=== PATIENT | male | born 1950 | race Caucasian/White ===

== ENCOUNTER 2016-09-15 16:32 | Inpatient (IN) | payer OTHER, MEDICARE ==
[~2016-09-15 16:32] MED LIST: AMINOPHYLLINE INJ/PF 250 MG/10 ML SDV IV ONE; REGADENOSON INJ 0.4 MG/5 ML DISP.SYRIN IV ONE
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
[2016-09-15] MEDS ORDERED: DIPH/PERTUSS(ACELL)/TETANUS VAC/PF 0.5 ML SYR (>=10YO) IM ONE (17:21)
[2016-09-15] MEDS ORDERED: MECLIZINE HCL 25 MG TABLET PO ONE (17:21)
[2016-09-15 17:41] LABS: HEMOGLOBIN 15.6 g/dL (13.5-17.0); HGB HCT DIFFERENCE 0.8; MEAN CORPUSCULAR HGB CONC 33.9 g/dL (32.0-36.0); MEAN CORPUSCULAR VOLUME 100 fl (80-97); RED BLOOD COUNT 4.59 10^6/uL (4.35-5.55); RED CELL DISTRIBUTION WIDTH 13.6 % (11.5-14.0); WHITE BLOOD COUNT 19.3 10^3/uL (4.0-10.5)
[2016-09-15 18:03] LABS: ALANINE AMINOTRANSFERASE 51 U/L (21-72); ALBUMIN 3.6 g/dL (3.5-5.0); ALKALINE PHOSPHATASE 107 U/L (38-126); ANION GAP 16 (5-19); ASPARTATE AMINO TRANSFERASE 63 U/L (17-59); BILIRUBIN,DIRECT 0.9 mg/dL (0.0-0.4); BLOOD UREA NITROGEN 13 mg/dL (7-20); CALCIUM 9.2 mg/dL (8.4-10.2); CARBON DIOXIDE 16 mmol/L (22-30); CHLORIDE 102 mmol/L (98-107); CREATINE KINASE 54 U/L (55-170); CREATININE RESULT 0.99 mg/dL (0.52-1.25); GLUCOSE 292 mg/dL (75-110); POTASSIUM 4.2 mmol/L (3.6-5.0); SODIUM 134.2 mmol/L (137-145)
[2016-09-15 18:04] LABS: ALCOHOL < 10 mg/dL (NONE DETECTED)
[2016-09-15 18:11] LABS: BASOPHILS % (MANUAL) 0 % (0-2); EOSINOPHILS % (MANUAL) 0 % (0-6); LYMPHOCYTES % (MANUAL) 4 % (13-45); TOTAL CELLS COUNTED 100
[2016-09-15 18:13] LABS: TOXIC GRANULATION SLIGHT
[2016-09-15 18:14] LABS: CREATINE KINASE MB < 0.22 ng/mL (<4.55); OVALOCYTES SLIGHT; POIKILOCYTOSIS SLIGHT
[2016-09-15 18:15] LABS: TROPONIN I 0.052 ng/mL
[2016-09-15] MEDS ORDERED: NORMAL SALINE 1000 ML 1,000 ML IV ONE (18:35)
[2016-09-15] MEDS ORDERED: CEFTRIAXONE 1 GM/D5W RTU 50 ML IV ONE (18:35)
[2016-09-15] MEDS ORDERED: LEVOFLOXACIN 750 MG/D5W RTU 150 ML IV ONE (18:36)
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
--- NOTE | 2016-09-15 19:37 | EKG REPORT ---
SEVERITY:- ABNORMAL ECG - SINUS TACHYCARDIA CLAUDIO, CONSIDER BIATRIAL ABNORMALITIES : Confirmed by: Britni Colunga MD 15-Sep-2016 19:36:29
[2016-09-15 20:16] LABS: ADD ON TESTING BLD IN LAB ACKNOWLEDGE
[2016-09-15 20:37] LABS: MAGNESIUM 2.1 mg/dL (1.6-2.3)
[2016-09-15] MEDS: NORMAL SALINE 1000 ML 1,000 ML IV PRN ×2 (21:01→22:29)
[2016-09-15] MEDS ORDERED: GUAIFENESIN SYRP 200 MG/10 ML UDC PO PRN (21:58)
[2016-09-15] MEDS ORDERED: IPRATROPIUM/ALBUTEROL 0.5-2.5 MG/3 ML AMPUL NEB PRN (21:58)
[2016-09-15] MEDS ORDERED: DEXTROSE 40% GEL 15 GM TUBE PO PRN ×2 (22:00)
[2016-09-15] MEDS ORDERED: DEXTROSE 50%-WATER 25 GM/50 ML DISP.SYRIN IV PRN ×2 (22:00)
[2016-09-15] MEDS ORDERED: GLUCAGON,HUMAN RECOMB 1 MG INJ IM PRN (22:00)
[2016-09-15] MEDS ORDERED: INSULIN LISPRO 100 UNIT/ML 3 ML VIAL SUBCUT PRN (22:00)
[2016-09-15] MEDS ORDERED: ACETAMINOPHEN 325 MG TABLET PO PRN (22:03)
[2016-09-15] MEDS ORDERED: ENALAPRILAT DIHYDRATE INJ/PF 1.25 MG/1 ML SDV IV PRN (22:17)
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
[2016-09-15] MEDS ORDERED: THIAMINE HCL 100 MG TABLET PO ONE (23:00)
[2016-09-15 23:26] LABS: APPEARANCE,URINE CLEAR; BILIRUBIN,URINE NEGATIVE (NEGATIVE); GLUCOSE, URINE 50 mg/dL (NEGATIVE); KETONES,URINE NEGATIVE (NEGATIVE); LEUKOCYTE ESTERASE,URINE NEGATIVE (NEGATIVE); NITRITE,URINE NEGATIVE (NEGATIVE); PROTEIN,URINE NEGATIVE (NEGATIVE); URINE SPECIFIC GRAVITY 1.004; UROBILINOGEN,URINE NEGATIVE mg/dL (<2.0)
[2016-09-15 23:34] LABS: URINE BARBITURATES SCREEN NEGATIVE; URINE METHADONE SCREEN NEGATIVE; URINE OPIATES LOW NEGATIVE; URINE PHENCYCLIDINE SCREEN NEGATIVE
[2016-09-16] MEDS: ACETAMINOPHEN 325 MG TABLET PO PRN ×2 (02:05→13:17)
[2016-09-16] MEDS ORDERED: NORMAL SALINE 1000 ML 500 ML IV ONE (03:47)
[2016-09-16] MEDS: NORMAL SALINE 1000 ML 1,000 ML IV PRN ×2 (04:05→13:30)
[2016-09-16 04:10] LABS: ABSOLUTE LYMPHOCYTES (AUTO) 0.8 10^3/uL (0.5-4.7); ABSOLUTE MONOCYTES (AUTO) 0.7 10^3/uL (0.1-1.4); ABSOLUTE NEUT (AUTO) 13.3 10^3/uL (1.7-8.2); BASOPHILS % (AUTO) 0.2 % (0-2); HEMATOCRIT 38.5 % (37.9-51.0); HGB HCT DIFFERENCE 1.7; LYMPHOCYTES % (AUTO) 5.2 % (13-45); MEAN CORPUSCULAR HGB CONC 34.8 g/dL (32.0-36.0); MEAN CORPUSCULAR VOLUME 98 fl (80-97); RED BLOOD COUNT 3.94 10^6/uL (4.35-5.55); RED CELL DISTRIBUTION WIDTH 13.7 % (11.5-14.0); SEGMENTED NEUTROPHILS % (AUTO) 89.6 % (42-78); WHITE BLOOD COUNT 14.9 10^3/uL (4.0-10.5)
[2016-09-16 04:29] LABS: ALANINE AMINOTRANSFERASE 62 U/L (21-72); ALBUMIN 2.7 g/dL (3.5-5.0); ALKALINE PHOSPHATASE 84 U/L (38-126); ANION GAP 9 (5-19); ASPARTATE AMINO TRANSFERASE 58 U/L (17-59); BILIRUBIN,DIRECT 0.8 mg/dL (0.0-0.4); BILIRUBIN,TOTAL 1.7 mg/dL (0.2-1.3); BLOOD UREA NITROGEN 12 mg/dL (7-20); CALCIUM 8.2 mg/dL (8.4-10.2); CARBON DIOXIDE 18 mmol/L (22-30); CHLORIDE 110 mmol/L (98-107); CREATININE RESULT 0.83 mg/dL (0.52-1.25); GLUCOSE 111 mg/dL (75-110); POTASSIUM 3.8 mmol/L (3.6-5.0); SODIUM 136.6 mmol/L (137-145); TOTAL PROTEIN 5.5 g/dL (6.3-8.2)
[2016-09-16 04:47] LABS: HEMOGLOBIN 13.4 g/dL (13.5-17.0)
--- NOTE | 2016-09-16 08:30 | EKG REPORT ---
SEVERITY:- OTHERWISE NORMAL ECG - SINUS TACHYCARDIA : Confirmed by: Britni Colunga MD 16-Sep-2016 08:30:12
[2016-09-16] MEDS: ENOXAPARIN SODIUM INJ 40 MG/0.4 ML DISP.SYRIN SUBCUT SCH (09:14)
[2016-09-16] MEDS: FOLIC ACID 1 MG TABLET PO SCH (09:34)
[2016-09-16] MEDS: BACITRACIN ZINC OINTMENT 15 GM TP SCH (09:34)
[2016-09-16] MEDS: MULTIVITAMIN TABLET PO SCH (09:34)
[2016-09-16] MEDS: THIAMINE HCL 100 MG TABLET PO SCH (09:34)
[2016-09-16] MEDS ORDERED: AZITHROMYCIN 500 MG in DEXTROSE 5%-WATER 250 ML IV SCH (10:00)
[2016-09-16] MEDS ORDERED: GUAIFENESIN 600 MG TABLET.SA PO ONE (15:23)
[2016-09-16] MEDS ORDERED: VANCOMYCIN HCL 0 MG in DEXTROSE 5%-WATER 250 ML IV NR (15:30)
--- NOTE | 2016-09-16 15:41 | PDOC PROGRESS REPORT ---
Subjective Progress Note for:: 09/16/16 Subjective:: The patient was seen earlier today on rounds. The patient admits to shortness of breath overall has improved. The patient has been producing a scant amount of sputum. The patient denies any nausea, vomiting, diarrhea, dizziness, chest pain, heart palpitations, fevers, or chills. The patient has responded to fever. Blood pressures have been in a good range. When prompted the patient voices no other concerns at this time. Review of systems: The rest of the review of systems is negative. Physical Exam Vital Signs: Temp Pulse Resp BP Pulse Ox 101.7 F H 104 H 20 126/60 H 95 09/16/16 11:08 09/16/16 14:13 09/16/16 11:08 09/16/16 11:08 09/16/16 11:08 Intake & Output 09/14/16 09/15/16 09/16/16 23:59 23:59 23:59 Intake Total 1950 Output Total 1250 Balance 700 Weight 90.1 kg General appearance: PRESENT: no acute distress, cooperative, well-developed, well-nourished Head exam: PRESENT: atraumatic, normocephalic Eye exam: PRESENT: conjunctiva pink, EOMI, PERRLA. ABSENT: scleral icterus Ear exam: PRESENT: normal external ear exam Mouth exam: PRESENT: moist, tongue midline Neck exam: ABSENT: carotid bruit, JVD, lymphadenopathy, thyromegaly Respiratory exam: PRESENT: decreased breath sounds, symmetrical, unlabored. ABSENT: rales, rhonchi, tachypnea, wheezes Cardiovascular exam: PRESENT: RRR. ABSENT: diastolic murmur, rubs, systolic murmur Pulses: PRESENT: normal dorsalis pedis pul Vascular exam: PRESENT: normal capillary refill GI/Abdominal exam: PRESENT: normal bowel sounds, soft. ABSENT: distended, guarding, mass, organolmegaly, rebound, tenderness Rectal exam: PRESENT: deferred Extremities exam: PRESENT: full ROM. ABSENT: calf tenderness, clubbing, pedal edema Neurological exam: PRESENT: alert, awake, oriented to person, oriented to place , oriented to time, oriented to situation, CN II-XII grossly intact. ABSENT: motor sensory deficit Psychiatric exam: PRESENT: appropriate affect, normal mood. ABSENT: homicidal ideation, suicidal ideation Skin exam: PRESENT: dry, intact, warm. ABSENT: cyanosis, rash Results Laboratory Results: 09/16/16 03:39 09/16/16 03:39 09/15/16 09/16/16 09/16/16 23:03 03:39 03:39 WBC 14.9 H RBC 3.94 L Hgb 13.4 L D Hct 38.5 MCV 98 H MCH 34.0 H MCHC 34.8 RDW 13.7 Plt Count 101 L Seg Neutrophils % 89.6 H Lymphocytes % 5.2 L Monocytes % 5.0 Eosinophils % 0.0 Basophils % 0.2 Absolute Neutrophils 13.3 H Absolute Lymphocytes 0.8 Absolute Monocytes 0.7 Absolute Eosinophils 0.0 Absolute Basophils 0.0 Sodium 136.6 L Potassium 3.8 Chloride 110 H Carbon Dioxide 18 L Anion Gap 9 BUN 12 Creatinine 0.83 Est GFR ( Amer) > 60 Est GFR (Non-Af Amer) > 60 Glucose 111 H Calcium 8.2 L Total Bilirubin 1.7 H AST 58 ALT 62 Alkaline Phosphatase 84 Total Protein 5.5 L Albumin 2.7 L Urine Color YELLOW Urine Appearance CLEAR Urine pH 6.0 Ur Specific [place] 1.004 Urine Protein NEGATIVE Urine Glucose (UA) 50 H Urine Ketones NEGATIVE Urine Blood NEGATIVE Urine Nitrite NEGATIVE Ur Leukocyte Esterase NEGATIVE Urine WBC (Auto) 1 Urine RBC (Auto) 1 09/15/16 23:12 Tracheal Aspirate Gram Stain - Final 09/15/16 23:12 Tracheal Aspirate Sputum Culture - Final 09/15/16 09/16/16 09/16/16 23:30 03:39 07:31 Troponin I 0.172 0.186 0.150 Impressions: Chest X-Ray 09/15/16 17:22 IMPRESSION: NO SIGNIFICANT RADIOGRAPHIC FINDING IN THE CHEST. Assessment & Plan - Diagnosis (1) Pneumonia Qualifiers: Pneumonia type: due to unspecified organism Laterality: unspecified laterality Lung location: unspecified part of lung Qualified Code(s) : J18.9 - Pneumonia, unspecified organism Is this a current diagnosis for this admission?: YesPlan: Appears to be a clinical pneumonia as there is no evidence on x-ray. Given the patient's symptoms will add Mucinex as well as incentive spirometry and flutter valve. (2) Bacteremia Is this a current diagnosis for this admission?: YesPlan: Currently awaiting second set of cultures will repeat blood cultures and follow. (3) Abrasion of left leg Qualifiers: Encounter type: initial encounter Qualified Code(s): S80.812A - Abrasion, left lower leg, initial encounter Is this a current diagnosis for this admission?: YesPlan: Appears self-limiting (4) Sepsis Qualifiers: Sepsis type: sepsis due to unspecified organism Qualified Code(s): A41.9 - Sepsis, unspecified organism Is this a current diagnosis for this admission?: YesPlan: Is likely secondary to #1 and #2. Will repeat blood cultures and increase coverage given the patient's persistent fever. (5) Elevated troponin Is this a current diagnosis for this admission?: YesPlan: Do appreciate cardiology's input with this most likely this is demand ischemia (6) Hyperglycemia Is this a current diagnosis for this admission?: YesPlan: Appears to be a stress response as the patient's A1c is an excellent range. (7) Orthostatic hypotension Is this a current diagnosis for this admission?: YesPlan: Improved with hydration (8) Syncope Qualifiers: Syncope type: unspecified Qualified Code(s): R55 - Syncope and collapse Is this a current diagnosis for this admission?: YesPlan: Most likely secondary to the above the patient had no further episodes. (9) Thrombocytopenia Is this a current diagnosis for this admission?: YesPlan: Secondary to cirrhosis relatively stable (10) Anxiety Is this a current diagnosis for this admission?: Yes (11) Cirrhosis of liver Qualifiers: Hepatic cirrhosis type: unspecified hepatic cirrhosis Ascites presence : without ascites Qualified Code(s): K74.60 - Unspecified cirrhosis of liver Is this a current diagnosis for this admission?: Yes (12) HTN (hypertension) Qualifiers: Hypertension type: essential hypertension Qualified Code(s): I10 - Essential (primary) hypertension Is this a current diagnosis for this admission?: YesPlan: Howard in a good range will continue to monitor - Time Time Spent with patient: 35 or more minutes Medications reviewed and adjusted accordingly: Yes Anticipated discharge: Home Within: within 48 hours, within 72 hours Disposition: The patient is a full code. Pending patient's symptomatology and diagnostic findings will reevaluate in the a.m.
[2016-09-16] MEDS: VANCOMYCIN HCL 1,250 MG in DEXTROSE 5%-WATER 250 ML IV SCH (17:29)
[2016-09-16] MEDS: PIPERACILLIN SODIUM/TAZOBACTAM 4.5 GM in NORMAL SALINE 100 ML IV SCH ×2 (17:30→23:35)
[2016-09-16] MEDS ORDERED: CEFTRIAXONE 1 GM/D5W RTU 1 GM/50 ML RTUPB IV SCH (18:00)
--- NOTE | 2016-09-16 18:56 | XCELERA REPORT ---
[address] [address] Transthoracic Echocardiogram Report Name: JAYA KOCH Age: 66 yrs Gender: Male : 1950 Patient Status: Inpatient Patient Location: [id number] Study Date: 09/16/2016 10:18 AM Height: 71 in Weight: 198 lb BSA: 2.1 m2 Procedure: A complete two-dimensional transthoracic echocardiogram was performed (2D, M-mode, spectral and color flow Doppler). The study was technically difficult with many images being suboptimal in quality. Reason For Study: syncope Ordering Physician: MARY GALAVIZ Performed By: Noemí Flores Interpretation Summary The left ventricular ejection fraction is normal. There is borderline concentric left ventricular hypertrophy. Doppler measurements suggest pseudonormalized left ventricular relaxation, which is associated with grade II/IV or mild to moderate diastolic dysfunction The left ventricle is grossly normal size. No regional wall motion abnormalities noted. The right ventricular systolic function is normal. The right atrium is normal in size The left atrium is borderline dilated. There is a trace amount of mitral regurgitation There is no mitral valve stenosis. No aortic regurgitation is present. There is no aortic valve stenosis There is a trace or physiologic amount of tricuspid regurgitation Tricuspid regurgitation jet envelope not well defined to measure RV systolic pressure accurately. The aortic root is not well visualized but is probably normal size. The inferior vena cava was not well visualized There is no pericardial effusion. MMode/2D Measurements \T\ Calculations RVDd: 3.2 cm LVIDd: 5.1 cm FS: 38.0 % Ao root diam: 3.3 cm IVSd: 0.96 cm LVIDs: 3.1 cm EDV(Teich): 121.0 ml LVPWd: 1.00 cm ESV(Teich): 38.8 ml Ao root area: 8.3 cm2 EF(Teich): 67.9 % LA dimension: 3.7 cm Doppler Measurements \T\ Calculations MV E max alisson: MV P1/2t max alisson: Ao V2 max: LV V1 max P.9 cm/sec 83.4 cm/sec 142.4 cm/sec 4.9 mmHg MV A max alisson: MV P1/2t: 63.1 msec Ao max PG: LV V1 max: 89.3 cm/sec 8.1 mmHg 110.6 cm/sec MV E/A: 0.92 MVA(P1/2t): 3.5 cm2 MV dec slope: 387.3 cm/sec2 MV dec time: 0.20 sec PA V2 max: 102.2 cm/sec PA max P.2 mmHg Left Ventricle The left ventricle is grossly normal size. There is borderline concentric left ventricular hypertrophy. The left ventricular ejection fraction is normal. Doppler measurements suggest pseudonormalized left ventricular relaxation, which is associated with grade II/IV or mild to moderate diastolic dysfunction. No regional wall motion abnormalities noted. Right Ventricle The right ventricle is grossly normal size. There is normal right ventricular wall thickness. The right ventricular systolic function is normal. Atria The right atrium is normal in size. The left atrium is borderline dilated. Interarterial septum not well visualized and not well dopplered. Cannot comment on ASD/PFO presence. Mitral Valve The mitral valve is grossly normal. There is no mitral valve stenosis. There is a trace amount of mitral regurgitation. Aortic Valve The aortic valve is grossly normal. There is no aortic valve stenosis. No aortic regurgitation is present. Tricuspid Valve The tricuspid valve is not well visualized secondary to technical limitations. There is no tricuspid stenosis. There is a trace or physiologic amount of tricuspid regurgitation. Tricuspid regurgitation jet envelope not well defined to measure RV systolic pressure accurately. Pulmonic Valve The pulmonic valve is not well visualized. Great Vessels The aortic root is not well visualized but is probably normal size. The inferior vena cava was not well visualized. Effusions There is no pericardial effusion. : MARY GALAVIZ > Mary Galaviz
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
[2016-09-16 20:10] LABS: CHOLESTEROL 91.06 mg/dL (0-200); Direct HDL 14 mg/dL (>40); TRIGLYCERIDES 161 mg/dL (<150)
[2016-09-16 20:22] LABS: DIRECT LDL < 30 mg/dL (<100); VLDL CHOLESTEROL 32.2 mg/dL (10-31)
[2016-09-16] MEDS: GUAIFENESIN 600 MG TABLET.SA PO SCH (21:19)
[2016-09-17] MEDS: VANCOMYCIN HCL 1,250 MG in DEXTROSE 5%-WATER 250 ML IV SCH ×2 (05:44→18:58)
[2016-09-17] MEDS: PIPERACILLIN SODIUM/TAZOBACTAM 4.5 GM in NORMAL SALINE 100 ML IV SCH ×3 (05:45→18:57)
[2016-09-17 08:41] LABS: HEMATOCRIT 37.7 % (37.9-51.0); HGB HCT DIFFERENCE 1.3; MEAN CORPUSCULAR HEMOGLOBIN 34.2 pg (27.0-33.4); MEAN CORPUSCULAR HGB CONC 34.5 g/dL (32.0-36.0); MEAN CORPUSCULAR VOLUME 99 fl (80-97); RED BLOOD COUNT 3.81 10^6/uL (4.35-5.55); WHITE BLOOD COUNT 10.3 10^3/uL (4.0-10.5)
[2016-09-17 09:02] LABS: ANION GAP 10 (5-19); BLOOD UREA NITROGEN 11 mg/dL (7-20); CALCIUM 8.2 mg/dL (8.4-10.2); CARBON DIOXIDE 18 mmol/L (22-30); CHLORIDE 108 mmol/L (98-107); CREATININE RESULT 0.69 mg/dL (0.52-1.25); GLUCOSE 123 mg/dL (75-110); MAGNESIUM 1.7 mg/dL (1.6-2.3); POTASSIUM 3.3 mmol/L (3.6-5.0); SODIUM 136.2 mmol/L (137-145)
[2016-09-17] MEDS: ENOXAPARIN SODIUM INJ 40 MG/0.4 ML DISP.SYRIN SUBCUT SCH (09:53)
[2016-09-17] MEDS: THIAMINE HCL 100 MG TABLET PO SCH (10:35)
[2016-09-17] MEDS: GUAIFENESIN 600 MG TABLET.SA PO SCH ×2 (10:35→21:49)
[2016-09-17] MEDS: POTASSIUM CHLORIDE 10 MEQ TABLET.SA PO SCH ×2 (10:36→15:07)
[2016-09-17] MEDS: BACITRACIN ZINC OINTMENT 15 GM TP SCH (10:36)
[2016-09-17] MEDS: MULTIVITAMIN TABLET PO SCH (10:36)
[2016-09-17] MEDS: FOLIC ACID 1 MG TABLET PO SCH (10:36)
--- NOTE | 2016-09-17 11:33 | PDOC PROGRESS REPORT ---
Subjective Progress Note for:: 09/17/16 Subjective:: Patient seems to be doing better with gradual improvement. Pt is denying any chest arm or neck discomfort. Patient denying any PND, orthopnea. Patient denied any sustained palpitations, dizziness, syncope, near syncope. Patient denying any fever chills. Patient denying any other significant discomfort. Patient is maintaining sinus rhythm. Today I discussed scheduling nuclear stress test with the patient. He is agreeable. 2-D echo results were reviewed with the patient. Review of systems: Rest review of systems negative. Medications: Medications have been reviewed. Physical Exam Vital Signs: Temp Pulse Resp BP Pulse Ox 100.8 F H 102 H 20 128/60 H 95 09/17/16 07:21 09/17/16 07:21 09/17/16 07:21 09/17/16 07:21 09/17/16 07:21 Intake & Output 09/16/16 09/17/16 09/18/16 06:59 06:59 06:59 Intake Total 1492 2808 Output Total 475 1850 Balance 1017 958 Weight 90.1 kg 92.9 kg Exam: GENERAL: well-nourished and in no acute distress. Alert and oriented x3 HEAD: Atraumatic, normocephalic. EYES: Pupils equal round and reactive to light, extraocular movements intact, sclera anicteric, conjunctiva are normal. ENT: TMs normal, nares patent, oropharynx clear without exudates. Moist mucous membranes. No oral ulcerations or bleeding gums noted NECK: supple without lymphadenopathy. Trachea is central. No cervical or axillary lymphadenopathy noted. Carotids are 2+, JVD WNL LUNGS: Respiration seems nonlabored, no significant accessory muscle action noted. Breath sounds clear to auscultation bilaterally and equal noted. No wheezes rales or rhonchi noted. No significant dullness noted on percussion. CHEST: Palpation of the chest wall shows no significant chest wall tenderness. No other significant abnormalities noted. HEART: [place] ASSESSMENT MANAGER, No PSH, 1/6 DIMA aortic area, 1/6 swanson systolic murmur mitral area, no rubs, no gallops. ABDOMEN: Soft, no significant tenderness appreciated, normoactive bowel sounds. No guarding, no rebound. No rigidity noted . No masses appreciated. EXTREMITIES: Pedal pulses are 1-2+, no calf tenderness noted. No clubbing or cyanosis.trace to 1+ pedal edema noted NEUROLOGICAL: Focused neurological exam showed no significant neurologic deficit. Normal speech, no focal weakness appreciated. PSYCH: Normal mood, normal affect. Judgment and insight within normal limits. SKIN: No significant ecchymosis, rash, ulcerations or signs of pruritus noted. MUSCULOSKELETAL EXAM: No significant joint swelling noted. Results Laboratory Results: 09/17/16 08:14 09/17/16 08:14 09/16/16 09/17/16 09/17/16 03:39 08:14 08:14 WBC 10.3 RBC 3.81 L Hgb 13.0 L Hct 37.7 L MCV 99 H MCH 34.2 H MCHC 34.5 RDW 14.0 Plt Count 101 L Sodium 136.2 L Potassium 3.3 L Chloride 108 H Carbon Dioxide 18 L Anion Gap 10 BUN 11 Creatinine 0.69 Est GFR ( Amer) > 60 Est GFR (Non-Af Amer) > 60 Glucose 123 H Calcium 8.2 L Magnesium 1.7 Triglycerides 161 H Cholesterol 91.06 LDL Cholesterol Direct < 30 VLDL Cholesterol 32.2 H HDL Cholesterol 14 L 09/15/16 23:12 Tracheal Aspirate Gram Stain - Final 09/15/16 23:12 Tracheal Aspirate Sputum Culture - Final 09/15/16 09/16/16 09/16/16 23:30 03:39 07:31 Troponin I 0.172 0.186 0.150 Impressions: Chest X-Ray 09/15/16 17:22 IMPRESSION: NO SIGNIFICANT RADIOGRAPHIC FINDING IN THE CHEST. Knee X-Ray 09/17/16 00:00 IMPRESSION: Advanced osteoarthritic changes. No acute findings. Assessment & Plan - Diagnosis (1) Elevated troponin Is this a current diagnosis for this admission?: Yes (2) Syncope Qualifiers: Syncope type: unspecified Qualified Code(s): R55 - Syncope and collapse Is this a current diagnosis for this admission?: Yes (3) HTN (hypertension) Qualifiers: Hypertension type: essential hypertension Qualified Code(s): I10 - Essential (primary) hypertension Is this a current diagnosis for this admission?: Yes (4) Sepsis Qualifiers: Sepsis type: sepsis due to unspecified organism Qualified Code(s): A41.9 - Sepsis, unspecified organism Is this a current diagnosis for this admission?: Yes - Notes Notes: Elevated troponin I in the non-STEMI range: Exact etiology not clear but probably related to sepsis. Discussed possibility of underlying CAD. Patient is now agreeable to pursue a nuclear stress test. This will be scheduled. Syncope: So far no cardiac dysrhythmia noted. Patient may benefit from event monitoring as an outpatient. 2-D echo shows no significant structural cardiac abnormalities. Hypertension: Currently under reasonable control. Sepsis: Seems resolved clinically but continue course of antibiotic as needed. - Time Time with patient: Greater than 35 minutes - CODE STATUS was discussed, patient remains full code. Surrogate decision-maker unchanged. Multiple medical problems were addressed.More than 50% of the time spent coordinating care, discussing management plans with involved caregivers. Management plans discussed with involved personnels. Medical decision making was of moderate to high complexity, patient's has multiple severe comorbidities.
[2016-09-17] MEDS ORDERED: METOPROLOL SUCCINATE 25 MG TAB.SR.24H PO ONE (12:15)
--- NOTE | 2016-09-17 13:43 | PDOC PROGRESS REPORT ---
Subjective Progress Note for:: 09/17/16 Subjective:: The patient was seen earlier today on rounds. The patient admits to shortness of breath overall has improved. The patient has been producing a scant amount of sputum. The patient does complain of left knee pain. The patient relates this to his fall. The patient denies any nausea, vomiting, diarrhea, dizziness , chest pain, heart palpitations, fevers, or chills. The patient still has a low-grade fever. Blood pressures have been in a good range. When prompted the patient voices no other concerns at this time. Review of systems: The rest of the review of systems is negative. Physical Exam Vital Signs: Temp Pulse Resp BP Pulse Ox 99.6 F 90 20 105/64 94 09/17/16 11:47 09/17/16 11:47 09/17/16 11:47 09/17/16 11:47 09/17/16 11:47 Intake & Output 09/15/16 09/16/16 09/17/16 23:59 23:59 23:59 Intake Total 3500 800 Output Total 1250 1075 Balance 2250 -275 Weight 90.1 kg 92.9 kg General appearance: PRESENT: no acute distress, cooperative, well-developed, well-nourished Head exam: PRESENT: atraumatic, normocephalic Eye exam: PRESENT: conjunctiva pink, EOMI, PERRLA. ABSENT: scleral icterus Ear exam: PRESENT: normal external ear exam Mouth exam: PRESENT: moist, tongue midline Neck exam: ABSENT: carotid bruit, JVD, lymphadenopathy, thyromegaly Respiratory exam: PRESENT: decreased breath sounds, symmetrical, unlabored. ABSENT: rales, rhonchi, tachypnea, wheezes Cardiovascular exam: PRESENT: RRR. ABSENT: diastolic murmur, rubs, systolic murmur Pulses: PRESENT: normal dorsalis pedis pul Vascular exam: PRESENT: normal capillary refill GI/Abdominal exam: PRESENT: normal bowel sounds, soft. ABSENT: distended, guarding, mass, organolmegaly, rebound, tenderness Rectal exam: PRESENT: deferred Extremities exam: PRESENT: full ROM. Left knee slightly erythematous. ABSENT: calf tenderness, clubbing, pedal edema Neurological exam: PRESENT: alert, awake, oriented to person, oriented to place , oriented to time, oriented to situation, CN II-XII grossly intact. ABSENT: motor sensory deficit Psychiatric exam: PRESENT: appropriate affect, normal mood. ABSENT: homicidal ideation, suicidal ideation Skin exam: PRESENT: dry, intact, warm. ABSENT: cyanosis, rash Results Laboratory Results: 09/17/16 08:14 09/17/16 08:14 09/16/16 09/17/16 09/17/16 03:39 08:14 08:14 WBC 10.3 RBC 3.81 L Hgb 13.0 L Hct 37.7 L MCV 99 H MCH 34.2 H MCHC 34.5 RDW 14.0 Plt Count 101 L Sodium 136.2 L Potassium 3.3 L Chloride 108 H Carbon Dioxide 18 L Anion Gap 10 BUN 11 Creatinine 0.69 Est GFR ( Amer) > 60 Est GFR (Non-Af Amer) > 60 Glucose 123 H Calcium 8.2 L Magnesium 1.7 Triglycerides 161 H Cholesterol 91.06 LDL Cholesterol Direct < 30 VLDL Cholesterol 32.2 H HDL Cholesterol 14 L 09/15/16 23:12 Tracheal Aspirate Gram Stain - Final 09/15/16 23:12 Tracheal Aspirate Sputum Culture - Final 09/15/16 09/16/16 09/16/16 23:30 03:39 07:31 Troponin I 0.172 0.186 0.150 Impressions: Chest X-Ray 09/15/16 17:22 IMPRESSION: NO SIGNIFICANT RADIOGRAPHIC FINDING IN THE CHEST. Knee X-Ray 09/17/16 00:00 IMPRESSION: Advanced osteoarthritic changes. No acute findings. Assessment & Plan - Diagnosis (1) Pneumonia Qualifiers: Pneumonia type: due to unspecified organism Laterality: unspecified laterality Lung location: unspecified part of lung Qualified Code(s) : J18.9 - Pneumonia, unspecified organism Is this a current diagnosis for this admission?: YesPlan: Appears to be a clinical pneumonia as there is no evidence on x-ray. Will continue Mucinex as well as incentive spirometry and flutter valve. (2) Bacteremia Is this a current diagnosis for this admission?: YesPlan: Currently awaiting second set of cultures. (3) Abrasion of left leg Qualifiers: Encounter type: initial encounter Qualified Code(s): S80.812A - Abrasion, left lower leg, initial encounter Is this a current diagnosis for this admission?: YesPlan: The patient does not have any obvious area of abscess or active infection. Patient does have some erythema of the left knee will obtain imaging short no evidence of effusion or septic joint. (4) Sepsis Qualifiers: Sepsis type: sepsis due to unspecified organism Qualified Code(s): A41.9 - Sepsis, unspecified organism Is this a current diagnosis for this admission?: YesPlan: Is likely secondary to #1 and #2. Will continue increased coverage given the patient's persistent fever. (5) Elevated troponin Is this a current diagnosis for this admission?: YesPlan: Do appreciate cardiology's input with this most likely this is demand ischemia. To appreciate cardiology's input. (6) Hyperglycemia Is this a current diagnosis for this admission?: YesPlan: Appears to be a stress response as the patient's A1c is an excellent range. (7) Orthostatic hypotension Is this a current diagnosis for this admission?: YesPlan: Improved with hydration (8) Syncope Qualifiers: Syncope type: unspecified Qualified Code(s): R55 - Syncope and collapse Is this a current diagnosis for this admission?: YesPlan: Most likely secondary to the above the patient had no further episodes. (9) Thrombocytopenia Is this a current diagnosis for this admission?: YesPlan: Secondary to cirrhosis relatively stable (10) Anxiety Is this a current diagnosis for this admission?: YesPlan: The patient's son has reported a history of PTSD as well as anxiety. With formal discussion with the patient the patient states that he has not been treated for either of these diagnoses and is not sure if he is ever been formally diagnosed. The patient did seem agitated when asked his son to participate in his care. Will consult psych for recommendations. The patient denies any intent or suicidal homicidal ideation. (11) Cirrhosis of liver Qualifiers: Hepatic cirrhosis type: unspecified hepatic cirrhosis Ascites presence : without ascites Qualified Code(s): K74.60 - Unspecified cirrhosis of liver Is this a current diagnosis for this admission?: Yes (12) HTN (hypertension) Qualifiers: Hypertension type: essential hypertension Qualified Code(s): I10 - Essential (primary) hypertension Is this a current diagnosis for this admission?: YesPlan: Howard in a good range will continue to monitor - Time Time Spent with patient: 25-34 minutes Medications reviewed and adjusted accordingly: Yes Anticipated discharge: Home Within: within 24 hours, within 48 hours Disposition: The patient is a full code. Pending patient's symptomatology and diagnostic findings will reevaluate in the a.m.
[2016-09-18] MEDS: PIPERACILLIN SODIUM/TAZOBACTAM 4.5 GM in NORMAL SALINE 100 ML IV SCH ×4 (00:36→17:07)
[2016-09-18 05:30] LABS: HEMATOCRIT 39.3 % (37.9-51.0); HEMOGLOBIN 13.5 g/dL (13.5-17.0); HGB HCT DIFFERENCE 1.2; MEAN CORPUSCULAR HEMOGLOBIN 33.8 pg (27.0-33.4); MEAN CORPUSCULAR HGB CONC 34.4 g/dL (32.0-36.0); MEAN CORPUSCULAR VOLUME 98 fl (80-97); RED BLOOD COUNT 3.99 10^6/uL (4.35-5.55); RED CELL DISTRIBUTION WIDTH 13.9 % (11.5-14.0); WHITE BLOOD COUNT 11.7 10^3/uL (4.0-10.5)
[2016-09-18 05:49] LABS: ANION GAP 12 (5-19); BLOOD UREA NITROGEN 15 mg/dL (7-20); CALCIUM 9.1 mg/dL (8.4-10.2); CARBON DIOXIDE 17 mmol/L (22-30); CHLORIDE 110 mmol/L (98-107); CREATININE RESULT 0.74 mg/dL (0.52-1.25); GLUCOSE 102 mg/dL (75-110); MAGNESIUM 1.9 mg/dL (1.6-2.3); SODIUM 139.4 mmol/L (137-145)
[2016-09-18 06:06] LABS: POTASSIUM 4.5 mmol/L (3.6-5.0)
[2016-09-18] MEDS: ENOXAPARIN SODIUM INJ 40 MG/0.4 ML DISP.SYRIN SUBCUT SCH (10:09)
[2016-09-18] MEDS: ASPIRIN 81 MG TABLET, ENT COATED PO SCH (10:15)
[2016-09-18] MEDS: FOLIC ACID 1 MG TABLET PO SCH (10:15)
[2016-09-18] MEDS: GUAIFENESIN 600 MG TABLET.SA PO SCH ×2 (10:15→21:10)
[2016-09-18] MEDS: VANCOMYCIN HCL 1,250 MG in DEXTROSE 5%-WATER 250 ML IV SCH ×2 (10:16→17:39)
[2016-09-18] MEDS: THIAMINE HCL 100 MG TABLET PO SCH (10:16)
[2016-09-18] MEDS: METOPROLOL SUCCINATE 25 MG TAB.SR.24H PO SCH (10:16)
[2016-09-18] MEDS: MULTIVITAMIN TABLET PO SCH (10:16)
[2016-09-18] MEDS: BACITRACIN ZINC OINTMENT 15 GM TP SCH (10:16)
--- NOTE | 2016-09-18 15:03 | PDOC PROGRESS REPORT ---
Subjective Progress Note for:: 09/18/16 Subjective:: The patient was seen earlier today on rounds. The patient admits to shortness of breath overall has improved. The patient has been producing a scant amount of sputum. The patient states that knee pain has improved. The patient denies any nausea, vomiting, diarrhea, dizziness, chest pain, heart palpitations, fevers, or chills. Patient has been afebrile overnight Blood pressures have been in a good range. When prompted the patient voices no other concerns at this time. Review of systems: The rest of the review of systems is negative. Physical Exam Vital Signs: Temp Pulse Resp BP Pulse Ox 98.7 F 71 18 113/55 L 94 09/18/16 11:14 09/18/16 11:14 09/18/16 11:14 09/18/16 11:14 09/18/16 11:14 Intake & Output 09/16/16 09/17/16 09/18/16 23:59 23:59 23:59 Intake Total 3500 2391 1328 Output Total 1250 1375 1200 Balance 2250 1016 128 Weight 90.1 kg 92.9 kg 96.5 kg General appearance: PRESENT: no acute distress, cooperative, well-developed, well-nourished Head exam: PRESENT: atraumatic, normocephalic Eye exam: PRESENT: conjunctiva pink, EOMI, PERRLA. ABSENT: scleral icterus Ear exam: PRESENT: normal external ear exam Mouth exam: PRESENT: moist, tongue midline Neck exam: ABSENT: carotid bruit, JVD, lymphadenopathy, thyromegaly Respiratory exam: PRESENT: decreased breath sounds, symmetrical, unlabored. ABSENT: rales, rhonchi, tachypnea, wheezes Cardiovascular exam: PRESENT: RRR. ABSENT: diastolic murmur, rubs, systolic murmur Pulses: PRESENT: normal dorsalis pedis pul Vascular exam: PRESENT: normal capillary refill GI/Abdominal exam: PRESENT: normal bowel sounds, soft. ABSENT: distended, guarding, mass, organolmegaly, rebound, tenderness Rectal exam: PRESENT: deferred Extremities exam: PRESENT: full ROM. Left knee slightly erythematous. ABSENT: calf tenderness, clubbing, pedal edema Neurological exam: PRESENT: alert, awake, oriented to person, oriented to place , oriented to time, oriented to situation, CN II-XII grossly intact. ABSENT: motor sensory deficit Psychiatric exam: PRESENT: appropriate affect, normal mood. ABSENT: homicidal ideation, suicidal ideation Skin exam: PRESENT: dry, intact, warm. ABSENT: cyanosis, rash Results Laboratory Results: 09/18/16 04:47 09/18/16 04:47 09/18/16 09/18/16 04:47 04:47 WBC 11.7 H RBC 3.99 L Hgb 13.5 Hct 39.3 MCV 98 H MCH 33.8 H MCHC 34.4 RDW 13.9 Plt Count 116 L Sodium 139.4 Potassium 4.5 D Chloride 110 H Carbon Dioxide 17 L Anion Gap 12 BUN 15 Creatinine 0.74 Est GFR ( Amer) > 60 Est GFR (Non-Af Amer) > 60 Glucose 102 Calcium 9.1 Magnesium 1.9 09/15/16 09/16/16 09/16/16 23:30 03:39 07:31 Troponin I 0.172 0.186 0.150 Impressions: Chest X-Ray 09/15/16 17:22 IMPRESSION: NO SIGNIFICANT RADIOGRAPHIC FINDING IN THE CHEST. Knee X-Ray 09/17/16 00:00 IMPRESSION: Advanced osteoarthritic changes. No acute findings. Assessment & Plan - Diagnosis (1) Pneumonia Qualifiers: Pneumonia type: due to unspecified organism Laterality: unspecified laterality Lung location: unspecified part of lung Qualified Code(s) : J18.9 - Pneumonia, unspecified organism Is this a current diagnosis for this admission?: YesPlan: Appears to be a clinical pneumonia as there is no evidence on x-ray. Will continue Mucinex as well as incentive spirometry and flutter valve. (2) Bacteremia Is this a current diagnosis for this admission?: YesPlan: Second set of blood cultures unremarkable. Will continue current antibiotic coverage 24 more hours. (3) Abrasion of left leg Qualifiers: Encounter type: initial encounter Qualified Code(s): S80.812A - Abrasion, left lower leg, initial encounter Is this a current diagnosis for this admission?: YesPlan: The patient does not have any obvious area of abscess or active infection. (4) Sepsis Qualifiers: Sepsis type: sepsis due to unspecified organism Qualified Code(s): A41.9 - Sepsis, unspecified organism Is this a current diagnosis for this admission?: YesPlan: Is likely secondary to #1 and #2. Will continue increased coverage given the patient's persistent fever. (5) Elevated troponin Is this a current diagnosis for this admission?: YesPlan: Do appreciate cardiology's input with this most likely this is demand ischemia. To appreciate cardiology's input. (6) Hyperglycemia Is this a current diagnosis for this admission?: YesPlan: Appears to be a stress response as the patient's A1c is an excellent range. (7) Orthostatic hypotension Is this a current diagnosis for this admission?: YesPlan: Improved with hydration (8) Syncope Qualifiers: Syncope type: unspecified Qualified Code(s): R55 - Syncope and collapse Is this a current diagnosis for this admission?: YesPlan: Most likely secondary to the above the patient had no further episodes. (9) Thrombocytopenia Is this a current diagnosis for this admission?: YesPlan: Secondary to cirrhosis relatively stable (10) Anxiety Is this a current diagnosis for this admission?: YesPlan: The patient's son has reported a history of PTSD as well as anxiety. With formal discussion with the patient the patient states that he has not been treated for either of these diagnoses and is not sure if he is ever been formally diagnosed. The patient did seem agitated when asked his son to participate in his care. Will consult psych for recommendations. The patient denies any intent or suicidal homicidal ideation. (11) Cirrhosis of liver Qualifiers: Hepatic cirrhosis type: unspecified hepatic cirrhosis Ascites presence : without ascites Qualified Code(s): K74.60 - Unspecified cirrhosis of liver Is this a current diagnosis for this admission?: Yes (12) HTN (hypertension) Qualifiers: Hypertension type: essential hypertension Qualified Code(s): I10 - Essential (primary) hypertension Is this a current diagnosis for this admission?: YesPlan: Howard in a good range will continue to monitor - Time Time Spent with patient: 25-34 minutes Medications reviewed and adjusted accordingly: Yes Anticipated discharge: Home Within: within 24 hours, within 48 hours Disposition: The patient is a full code. Pending patient's symptomatology and diagnostic findings will reevaluate in the a.m.
--- NOTE | 2016-09-18 16:14 | DRAGON STRESS TEST REPORT ---
INTRAVENOUS LEXISCAN CARDIOLITE STRESS TEST USING SINGLE PHOTON EMMISION COMPUTERIZED TOMOGRAPHIC. DATE OF PROCEDURE: September 18, 2016 INDICATION : Abnormal troponin I elevation CARDIAC RISK FACTORS: Diabetes, hypertension RESTING EKG: Sinus rhythm without any baseline ST-T wave changes STRESS EKG: No significant changes noted with LexiScan bolus REASON FOR TERMINATION: Protocol. PROCEDURE REPORT: Baseline heart rate 76 beats per minute with blood pressure of 108/76. Patient had no significant complaints. Heart rate at 2 minutes post bolus 86 with a blood pressure of 115/52. 3 minutes post bolus heart rate 84 with blood pressure of 116/52. No significant EKG changes were noted. Patient had no significant complaints during the procedure or postprocedure. Patient injected with Aminophyllin 75 mg at 3 minutes or later after Lexiscan bolus. CONCLUSIONS: Normal EKG and hemodynamic response to IV LexiScan. NUCLEAR DATA: At rest the patient was given 14.0 millicuries of technetium 99 sestamibi injected intravenously. As per protocol rest gated SPECT images were obtained. Subsequently the patient was given intravenous LexiScan at a dose of 0.4 mg in 5 mL intravenously, followed by flush with normal saline. Subsequently the stress dose of 42.5 millicuries of technetium 99 sestamibi was injected intravenously. As per protocol stress gated images were obtained. NUCLEAR INTERPRETATION: Both raw and processed data were used for interpretation. Visual, qualitative, computer-generated quantitative data was used. There was good myocardial uptake of technetium compound. Motion artifact and soft tissue attenuations were noted. Increased visceral uptake was noted. No definitive areas of transient perfusion defect noted. A small area of mild fixed defect noted in the distal anterior wall consistent with mild scar.. EKG gated imaging showed LV EF at 51 %, rest and stress gated EF similar visually. T. I D. ratio was 1.16. Lung heart ratio noted to be within normal limits to borderline increased at 0.40. No significant extracardiac and abnormal radiotracer activities were noted. RV free wall uptake was noted to be WNL IMPRESSION: Also refer to comments under nuclear interpretation. Also test results needs to be interpreted in the context of pretest probability. 1. There is no definitive scintigraphic evidence of LexiScan induced myocardial ischemia. 2. A small area of mild fixed defect noted in the distal anterior wall consistent with mild scar. 3. EKG gated imaging shows left ejection fraction of approximately 51 %. 4. Clinical correlation requested as occasionally worse disease or balanced ischemia could be missed. In approximately 10% of the cases Lexiscan may not cause adequate vasodilatory stress. RECOMMENDATIONS: Aggressive risk factor modification, medical therapy. Clinical correlation with echocardiogram derived ejection fraction. Inability to exercise by itself can lead to increased cardiovascular event risks. Consider cardiology consultation and or follow-up if clinically indicated. I AM AVAILABLE FOR CARDIOLOGY CONSULTATION AND FOLLOWUP IF REQUESTED BY PMD Mary Farley M.D., [facility]ENTER[facility]ra Ear Nose Throat Surgeon ecd, Board certified in cardiovascular diseases, Nuclear cardiology, Echocardiography Cardiac CT and cardiac MRI Ph. [phone] BRIANNA
--- NOTE | 2016-09-18 20:09 | PDOC PROGRESS REPORT ---
Subjective Progress Note for:: 09/18/16 Subjective:: Patient seems to be doing better with gradual improvement. Pt is denying any chest arm or neck discomfort. Patient denying any PND, orthopnea. Patient denied any sustained palpitations, dizziness, syncope, near syncope. Patient denying any fever chills. Patient denying any other significant discomfort. Patient is maintaining sinus rhythm. 2-D echo results were reviewed with the patient. Nuclear stress test procedure was explained to the patient in detail. Risks benefits were discussed and informed consent was obtained. Alternatives were discussed. Patient informed that based on risk factors, physical exam, lab data findings and symptoms there is at least intermediate probability of underlying CAD. Nuclear stress test procedure was therefore scheduled. Review of systems: Rest review of systems negative. Medications: Medications have been reviewed. Physical Exam Vital Signs: Temp Pulse Resp BP Pulse Ox 98.5 F 69 24 H 104/68 95 09/18/16 15:23 09/18/16 15:23 09/18/16 15:23 09/18/16 15:23 09/18/16 15:23 Intake & Output 09/17/16 09/18/16 09/19/16 06:59 06:59 06:59 Intake Total 2808 2091 1971 Output Total 1850 1500 Balance 671 481 7025 Weight 92.9 kg 96.5 kg Exam: GENERAL: well-nourished and in no acute distress. Alert and oriented x3 HEAD: Atraumatic, normocephalic. EYES: Pupils equal round and reactive to light, extraocular movements intact, sclera anicteric, conjunctiva are normal. ENT: TMs normal, nares patent, oropharynx clear without exudates. Moist mucous membranes. No oral ulcerations or bleeding gums noted NECK: supple without lymphadenopathy. Trachea is central. No cervical or axillary lymphadenopathy noted. Carotids are 2+, JVD WNL LUNGS: Respiration seems nonlabored, no significant accessory muscle action noted. Breath sounds clear to auscultation bilaterally and equal noted. No wheezes rales or rhonchi noted. No significant dullness noted on percussion. CHEST: Palpation of the chest wall shows no significant chest wall tenderness. No other significant abnormalities noted. HEART: [place] [employer], No PSH, 1/6 DIMA aortic area, 1/6 swanson systolic murmur mitral area, no rubs, no gallops. ABDOMEN: Soft, no significant tenderness appreciated, normoactive bowel sounds. No guarding, no rebound. No rigidity noted . No masses appreciated. EXTREMITIES: Pedal pulses are 1-2+, no calf tenderness noted. No clubbing or cyanosis.trace to 1+ pedal edema noted NEUROLOGICAL: Focused neurological exam showed no significant neurologic deficit. Normal speech, no focal weakness appreciated. PSYCH: Normal mood, normal affect. Judgment and insight within normal limits. SKIN: No significant ecchymosis, rash, ulcerations or signs of pruritus noted. MUSCULOSKELETAL EXAM: No significant joint swelling noted. Results Laboratory Results: 09/18/16 04:47 09/18/16 04:47 09/18/16 09/18/16 04:47 04:47 WBC 11.7 H RBC 3.99 L Hgb 13.5 Hct 39.3 MCV 98 H MCH 33.8 H MCHC 34.4 RDW 13.9 Plt Count 116 L Sodium 139.4 Potassium 4.5 D Chloride 110 H Carbon Dioxide 17 L Anion Gap 12 BUN 15 Creatinine 0.74 Est GFR ( Amer) > 60 Est GFR (Non-Af Amer) > 60 Glucose 102 Calcium 9.1 Magnesium 1.9 09/15/16 09/16/16 09/16/16 23:30 03:39 07:31 Troponin I 0.172 0.186 0.150 Impressions: Chest X-Ray 09/15/16 17:22 IMPRESSION: NO SIGNIFICANT RADIOGRAPHIC FINDING IN THE CHEST. Knee X-Ray 09/17/16 00:00 IMPRESSION: Advanced osteoarthritic changes. No acute findings. Assessment & Plan - Diagnosis (1) Elevated troponin Is this a current diagnosis for this admission?: Yes (2) Syncope Qualifiers: Syncope type: unspecified Qualified Code(s): R55 - Syncope and collapse Is this a current diagnosis for this admission?: Yes (3) HTN (hypertension) Qualifiers: Hypertension type: essential hypertension Qualified Code(s): I10 - Essential (primary) hypertension Is this a current diagnosis for this admission?: Yes (4) Sepsis Qualifiers: Sepsis type: sepsis due to unspecified organism Qualified Code(s): A41.9 - Sepsis, unspecified organism Is this a current diagnosis for this admission?: Yes - Notes Notes: Elevated troponin I in the non-STEMI range: Exact etiology not clear but probably related to sepsis. Discussed possibility of underlying CAD. Patient did agree to pursue a nuclear stress test and this was performed. It did show a small area of fixed defect in the distal anterior wall. No definite ischemia was noted. 2-D echo had shown normal LVEF. EKG gated imaging also showed satisfactory LVEF. It was felt that these findings suggested relatively low risk. At this point would recommend treating patient with medical management with aspirin, beta mirta, CHARLIE inhibitor, statins. These findings were discussed and patient agreeable with such approach. Also discussed with hospitalist. Syncope: So far no cardiac dysrhythmia noted. Patient may benefit from event monitoring as an outpatient. 2-D echo shows no significant structural cardiac abnormalities. Syncope is most likely related to metabolic reasons most likely from dehydration and sepsis. Hypertension: Currently under reasonable control. Sepsis: Seems resolved clinically but continue course of antibiotic as needed. Patient has been afebrile for the last 24 hours. - Time Time with patient: Greater than 35 minutes - CODE STATUS was discussed, patient remains full code. Surrogate decision-maker unchanged. Multiple medical problems were addressed. Patient was seen multiple times today. Patient was seen in the morning when nuclear stress test procedure was explained. Patient was seen during the stress test and also post stress test. Results were discussed. More than 50% of the time spent coordinating care, discussing management plans with involved caregivers. Management plans discussed with involved personnels. Medical decision making was of moderate to high complexity , patient's has multiple severe comorbidities.
[2016-09-19] MEDS: PIPERACILLIN SODIUM/TAZOBACTAM 4.5 GM in NORMAL SALINE 100 ML IV SCH ×4 (00:18→18:25)
[2016-09-19] MEDS: VANCOMYCIN HCL 1,250 MG in DEXTROSE 5%-WATER 250 ML IV SCH ×3 (02:00→16:53)
[2016-09-19 05:37] LABS: HEMATOCRIT 37.6 % (37.9-51.0); HEMOGLOBIN 12.9 g/dL (13.5-17.0); HGB HCT DIFFERENCE 1.1; MEAN CORPUSCULAR HEMOGLOBIN 34.4 pg (27.0-33.4); MEAN CORPUSCULAR HGB CONC 34.3 g/dL (32.0-36.0); MEAN CORPUSCULAR VOLUME 100 fl (80-97); RED BLOOD COUNT 3.75 10^6/uL (4.35-5.55); RED CELL DISTRIBUTION WIDTH 13.8 % (11.5-14.0); WHITE BLOOD COUNT 11.8 10^3/uL (4.0-10.5)
[2016-09-19] MEDS: ENOXAPARIN SODIUM INJ 40 MG/0.4 ML DISP.SYRIN SUBCUT SCH (10:08)
[2016-09-19] MEDS: FOLIC ACID 1 MG TABLET PO SCH (10:09)
[2016-09-19] MEDS: GUAIFENESIN 600 MG TABLET.SA PO SCH ×2 (10:09→21:45)
[2016-09-19] MEDS: ASPIRIN 81 MG TABLET, ENT COATED PO SCH (10:09)
[2016-09-19] MEDS: METOPROLOL SUCCINATE 25 MG TAB.SR.24H PO SCH (10:09)
[2016-09-19] MEDS: MULTIVITAMIN TABLET PO SCH (10:09)
[2016-09-19] MEDS: THIAMINE HCL 100 MG TABLET PO SCH (10:09)
[2016-09-19] MEDS: BACITRACIN ZINC OINTMENT 15 GM TP SCH (10:09)
--- NOTE | 2016-09-19 11:03 | PDOC PROGRESS REPORT ---
Subjective Progress Note for:: 09/19/16 Subjective:: The patient was seen earlier today on rounds. The patient admits to shortness of breath overall has improved. The patient states that knee pain has improved. The patient denies any nausea, vomiting, diarrhea, dizziness, chest pain, heart palpitations, fevers, or chills. Patient has been afebrile overnight. Blood pressures have been in a good range. When prompted the patient voices no other concerns at this time. Review of systems: The rest of the review of systems is negative. Physical Exam Vital Signs: Temp Pulse Resp BP Pulse Ox 98.3 F 67 22 H 109/55 L 98 09/19/16 07:38 09/19/16 07:38 09/19/16 07:38 09/19/16 07:38 09/19/16 07:38 Intake & Output 09/17/16 09/18/16 09/19/16 23:59 23:59 23:59 Intake Total 2391 2471 755 Output Total 1375 1200 Balance 1016 1271 755 Weight 92.9 kg 96.5 kg 91.4 kg General appearance: PRESENT: no acute distress, cooperative, well-developed, well-nourished Head exam: PRESENT: atraumatic, normocephalic Eye exam: PRESENT: conjunctiva pink, EOMI, PERRLA. ABSENT: scleral icterus Ear exam: PRESENT: normal external ear exam Mouth exam: PRESENT: moist, tongue midline Neck exam: ABSENT: carotid bruit, JVD, lymphadenopathy, thyromegaly Respiratory exam: PRESENT: decreased breath sounds, symmetrical, unlabored. ABSENT: rales, rhonchi, tachypnea, wheezes Cardiovascular exam: PRESENT: RRR. ABSENT: diastolic murmur, rubs, systolic murmur Pulses: PRESENT: normal dorsalis pedis pul Vascular exam: PRESENT: normal capillary refill GI/Abdominal exam: PRESENT: normal bowel sounds, soft. ABSENT: distended, guarding, mass, organolmegaly, rebound, tenderness Rectal exam: PRESENT: deferred Extremities exam: PRESENT: full ROM. Left knee slightly erythematous. ABSENT: calf tenderness, clubbing, pedal edema Neurological exam: PRESENT: alert, awake, oriented to person, oriented to place , oriented to time, oriented to situation, CN II-XII grossly intact. ABSENT: motor sensory deficit Psychiatric exam: PRESENT: appropriate affect, normal mood. ABSENT: homicidal ideation, suicidal ideation Skin exam: PRESENT: dry, intact, warm. ABSENT: cyanosis, rash Results Laboratory Results: 09/19/16 04:49 09/19/16 09:42 09/19/16 09/19/16 04:49 09:42 WBC 11.8 H RBC 3.75 L Hgb 12.9 L Hct 37.6 L MCV 100 H MCH 34.4 H MCHC 34.3 RDW 13.8 Plt Count 132 L Creatinine 0.60 Est GFR ( Amer) > 60 Est GFR (Non-Af Amer) > 60 09/15/16 09/16/16 09/16/16 23:30 03:39 07:31 Troponin I 0.172 0.186 0.150 Impressions: Chest X-Ray 09/15/16 17:22 IMPRESSION: NO SIGNIFICANT RADIOGRAPHIC FINDING IN THE CHEST. Knee X-Ray 09/17/16 00:00 IMPRESSION: Advanced osteoarthritic changes. No acute findings. Assessment & Plan - Diagnosis (1) Pneumonia Qualifiers: Pneumonia type: due to unspecified organism Laterality: unspecified laterality Lung location: unspecified part of lung Qualified Code(s) : J18.9 - Pneumonia, unspecified organism Is this a current diagnosis for this admission?: YesPlan: Appears to be a clinical pneumonia as there is no evidence on x-ray. Will continue Mucinex as well as incentive spirometry and flutter valve. (2) Bacteremia Is this a current diagnosis for this admission?: YesPlan: Second set of blood cultures unremarkable. Will continue current antibiotic coverage until original set finalizes. (3) Abrasion of left leg Qualifiers: Encounter type: initial encounter Qualified Code(s): S80.812A - Abrasion, left lower leg, initial encounter Is this a current diagnosis for this admission?: YesPlan: The patient does not have any obvious area of abscess or active infection. (4) Sepsis Qualifiers: Sepsis type: sepsis due to unspecified organism Qualified Code(s): A41.9 - Sepsis, unspecified organism Is this a current diagnosis for this admission?: YesPlan: Is likely secondary to #1 and #2. Will continue increased coverage given the patient's persistent fever. (5) Elevated troponin Is this a current diagnosis for this admission?: YesPlan: Do appreciate cardiology's input with this most likely this is demand ischemia. To appreciate cardiology's input. (6) Hyperglycemia Is this a current diagnosis for this admission?: YesPlan: Appears to be a stress response as the patient's A1c is an excellent range. (7) Orthostatic hypotension Is this a current diagnosis for this admission?: YesPlan: Improved with hydration (8) Syncope Qualifiers: Syncope type: unspecified Qualified Code(s): R55 - Syncope and collapse Is this a current diagnosis for this admission?: YesPlan: Most likely secondary to the above the patient had no further episodes. (9) Thrombocytopenia Is this a current diagnosis for this admission?: YesPlan: Secondary to cirrhosis relatively stable (10) Anxiety Is this a current diagnosis for this admission?: YesPlan: The patient's son has reported a history of PTSD as well as anxiety. With formal discussion with the patient the patient states that he has not been treated for either of these diagnoses and is not sure if he is ever been formally diagnosed. The patient did seem agitated when asked his son to participate in his care. Awaiting psych for recommendations. The patient denies any intent or suicidal homicidal ideation. (11) Cirrhosis of liver Qualifiers: Hepatic cirrhosis type: unspecified hepatic cirrhosis Ascites presence : without ascites Qualified Code(s): K74.60 - Unspecified cirrhosis of liver Is this a current diagnosis for this admission?: Yes (12) HTN (hypertension) Qualifiers: Hypertension type: essential hypertension Qualified Code(s): I10 - Essential (primary) hypertension Is this a current diagnosis for this admission?: YesPlan: Howard in a good range will continue to monitor - Time Time Spent with patient: 25-34 minutes Medications reviewed and adjusted accordingly: Yes Anticipated discharge: Home Within: within 24 hours
--- NOTE | 2016-09-19 11:55 | PDOC PROGRESS REPORT ---
Subjective Progress Note for:: 09/19/16 Subjective:: Patient seems to be doing better with gradual improvement. Pt is denying any chest arm or neck discomfort. Patient denying any PND, orthopnea. Patient denied any sustained palpitations, dizziness, syncope, near syncope. Patient denying any fever chills. Patient denying any other significant discomfort. Patient is maintaining sinus rhythm. 2-D echo results were reviewed with the patient. Nuclear stress test results were also reviewed with the patient. Patient questions were answered. Review of systems: Rest review of systems negative. Medications: Medications have been reviewed. Physical Exam Vital Signs: Temp Pulse Resp BP Pulse Ox 98.3 F 67 22 H 109/55 L 98 09/19/16 07:38 09/19/16 07:38 09/19/16 07:38 09/19/16 07:38 09/19/16 07:38 Intake & Output 09/18/16 09/19/16 09/20/16 06:59 06:59 06:59 Intake Total 2091 2726 Output Total 1500 Balance 591 2726 Weight 96.5 kg 91.4 kg Exam: GENERAL: well-nourished and in no acute distress. Alert and oriented x3 HEAD: Atraumatic, normocephalic. EYES: Pupils equal round and reactive to light, extraocular movements intact, sclera anicteric, conjunctiva are normal. ENT: TMs normal, nares patent, oropharynx clear without exudates. Moist mucous membranes. No oral ulcerations or bleeding gums noted NECK: supple without lymphadenopathy. Trachea is central. No cervical or axillary lymphadenopathy noted. Carotids are 2+, JVD WNL LUNGS: Respiration seems nonlabored, no significant accessory muscle action noted. Breath sounds clear to auscultation bilaterally and equal noted. No wheezes rales or rhonchi noted. No significant dullness noted on percussion. CHEST: Palpation of the chest wall shows no significant chest wall tenderness. No other significant abnormalities noted. HEART: [place] [employer], No PSH, 1/6 DIMA aortic area, 1/6 swanson systolic murmur mitral area, no rubs, no gallops. ABDOMEN: Soft, no significant tenderness appreciated, normoactive bowel sounds. No guarding, no rebound. No rigidity noted . No masses appreciated. EXTREMITIES: Pedal pulses are 1-2+, no calf tenderness noted. No clubbing or cyanosis.trace to 1+ pedal edema noted NEUROLOGICAL: Focused neurological exam showed no significant neurologic deficit. Normal speech, no focal weakness appreciated. PSYCH: Normal mood, normal affect. Judgment and insight within normal limits. SKIN: No significant ecchymosis, rash, ulcerations or signs of pruritus noted. MUSCULOSKELETAL EXAM: No significant joint swelling noted. Results Laboratory Results: 09/19/16 04:49 09/19/16 09:42 09/19/16 09/19/16 04:49 09:42 WBC 11.8 H RBC 3.75 L Hgb 12.9 L Hct 37.6 L MCV 100 H MCH 34.4 H MCHC 34.3 RDW 13.8 Plt Count 132 L Creatinine 0.60 Est GFR ( Amer) > 60 Est GFR (Non-Af Amer) > 60 09/15/16 09/16/16 09/16/16 23:30 03:39 07:31 Troponin I 0.172 0.186 0.150 Impressions: Chest X-Ray 09/15/16 17:22 IMPRESSION: NO SIGNIFICANT RADIOGRAPHIC FINDING IN THE CHEST. Knee X-Ray 09/17/16 00:00 IMPRESSION: Advanced osteoarthritic changes. No acute findings. Assessment & Plan - Diagnosis (1) Elevated troponin Is this a current diagnosis for this admission?: Yes (2) Syncope Qualifiers: Syncope type: unspecified Qualified Code(s): R55 - Syncope and collapse Is this a current diagnosis for this admission?: Yes (3) HTN (hypertension) Qualifiers: Hypertension type: essential hypertension Qualified Code(s): I10 - Essential (primary) hypertension Is this a current diagnosis for this admission?: Yes (4) Sepsis Qualifiers: Sepsis type: sepsis due to unspecified organism Qualified Code(s): A41.9 - Sepsis, unspecified organism Is this a current diagnosis for this admission?: Yes - Notes Notes: Elevated troponin I in the non-STEMI range: Exact etiology not clear but probably related to sepsis. It was evaluated with a nuclear stress test. It did show a small area of fixed defect in the distal anterior wall. No definite ischemia was noted. 2-D echo had shown normal LVEF. EKG gated imaging also showed satisfactory LVEF. It was felt that these findings suggested relatively low risk. At this point recommended medical management to the patient with aspirin, beta mirta, CHARLIE inhibitor, statins. Syncope: So far no cardiac dysrhythmia noted. Patient may benefit from event monitoring as an outpatient. 2-D echo shows no significant structural cardiac abnormalities. Syncope is most likely related to metabolic reasons most likely from dehydration and sepsis. Hypertension: Currently under reasonable control. Sepsis: Seems resolved clinically but continue course of antibiotic as needed. Patient has been afebrile for the last 48 hours. - Time Time with patient: 15-25 minutes - CODE STATUS was discussed, patient remains full code. Surrogate decision-maker not clearly identified by the patient but claims that he can call his son need arises. Multiple medical problems were addressed.More than 50% of the time spent coordinating care, discussing management plans with involved caregivers. Management plans discussed with involved personnels. Medical decision making was of moderate to high complexity , patient's has multiple severe comorbidities.
[2016-09-20] MEDS: PIPERACILLIN SODIUM/TAZOBACTAM 4.5 GM in NORMAL SALINE 100 ML IV SCH ×5 (00:03→23:33)
[2016-09-20] MEDS: VANCOMYCIN HCL 1,250 MG in DEXTROSE 5%-WATER 250 ML IV SCH ×3 (01:30→18:37)
[2016-09-20] MEDS: GUAIFENESIN 600 MG TABLET.SA PO SCH ×2 (09:35→21:09)
[2016-09-20] MEDS: ENOXAPARIN SODIUM INJ 40 MG/0.4 ML DISP.SYRIN SUBCUT SCH (09:35)
[2016-09-20] MEDS: METOPROLOL SUCCINATE 25 MG TAB.SR.24H PO SCH (09:35)
[2016-09-20] MEDS: MULTIVITAMIN TABLET PO SCH (09:35)
[2016-09-20] MEDS: THIAMINE HCL 100 MG TABLET PO SCH (09:35)
[2016-09-20] MEDS: ASPIRIN 81 MG TABLET, ENT COATED PO SCH (09:35)
[2016-09-20] MEDS: FOLIC ACID 1 MG TABLET PO SCH (09:35)
[2016-09-20] MEDS: BACITRACIN ZINC OINTMENT 15 GM TP SCH (09:36)
--- NOTE | 2016-09-20 12:00 | PDOC PROGRESS REPORT ---
Subjective Progress Note for:: 09/20/16 Subjective:: The patient was seen earlier today on rounds. The patient admits to shortness of breath overall has improved. The patient states that knee pain has improved. The patient denies any nausea, vomiting, diarrhea, dizziness, chest pain, heart palpitations, fevers, or chills. Patient has been afebrile overnight. Blood pressures have been in a good range. When prompted the patient voices no other concerns at this time. Review of systems: The rest of the review of systems is negative. Physical Exam Vital Signs: Temp Pulse Resp BP Pulse Ox 98.9 F 67 16 116/60 99 09/20/16 08:13 09/20/16 08:13 09/20/16 08:13 09/20/16 08:13 09/20/16 08:13 Intake & Output 09/18/16 09/19/16 09/20/16 23:59 23:59 23:59 Intake Total 2471 2598 737 Output Total 1200 100 Balance 1271 2498 737 Weight 96.5 kg 91.4 kg 90.1 kg General appearance: PRESENT: no acute distress, cooperative, well-developed, well-nourished Head exam: PRESENT: atraumatic, normocephalic Eye exam: PRESENT: conjunctiva pink, EOMI, PERRLA. ABSENT: scleral icterus Ear exam: PRESENT: normal external ear exam Mouth exam: PRESENT: moist, tongue midline Neck exam: ABSENT: carotid bruit, JVD, lymphadenopathy, thyromegaly Respiratory exam: PRESENT: decreased breath sounds, symmetrical, unlabored. ABSENT: rales, rhonchi, tachypnea, wheezes Cardiovascular exam: PRESENT: RRR. ABSENT: diastolic murmur, rubs, systolic murmur Pulses: PRESENT: normal dorsalis pedis pul Vascular exam: PRESENT: normal capillary refill GI/Abdominal exam: PRESENT: normal bowel sounds, soft. ABSENT: distended, guarding, mass, organolmegaly, rebound, tenderness Rectal exam: PRESENT: deferred Extremities exam: PRESENT: full ROM. Left knee slightly erythematous. ABSENT: calf tenderness, clubbing, pedal edema Neurological exam: PRESENT: alert, awake, oriented to person, oriented to place , oriented to time, oriented to situation, CN II-XII grossly intact. ABSENT: motor sensory deficit Psychiatric exam: PRESENT: appropriate affect, normal mood. ABSENT: homicidal ideation, suicidal ideation Skin exam: PRESENT: dry, intact, warm. ABSENT: cyanosis, rash Results Laboratory Results: 09/19/16 04:49 09/19/16 09:42 09/19/16 09:42 Creatinine 0.60 Est GFR ( Amer) > 60 Est GFR (Non-Af Amer) > 60 09/15/16 09/16/16 09/16/16 23:30 03:39 07:31 Troponin I 0.172 0.186 0.150 Impressions: Chest X-Ray 09/15/16 17:22 IMPRESSION: NO SIGNIFICANT RADIOGRAPHIC FINDING IN THE CHEST. Knee X-Ray 09/17/16 00:00 IMPRESSION: Advanced osteoarthritic changes. No acute findings. Assessment & Plan - Diagnosis (1) Pneumonia Qualifiers: Pneumonia type: due to unspecified organism Laterality: unspecified laterality Lung location: unspecified part of lung Qualified Code(s) : J18.9 - Pneumonia, unspecified organism Is this a current diagnosis for this admission?: YesPlan: Appears to be a clinical pneumonia as there is no evidence on x-ray. Will continue Mucinex as well as incentive spirometry and flutter valve. (2) Bacteremia Is this a current diagnosis for this admission?: YesPlan: Second set of blood cultures unremarkable. Will continue current antibiotic coverage until original set finalizes. (3) Abrasion of left leg Qualifiers: Encounter type: initial encounter Qualified Code(s): S80.812A - Abrasion, left lower leg, initial encounter Is this a current diagnosis for this admission?: YesPlan: The patient does not have any obvious area of abscess or active infection. (4) Sepsis Qualifiers: Sepsis type: sepsis due to unspecified organism Qualified Code(s): A41.9 - Sepsis, unspecified organism Is this a current diagnosis for this admission?: YesPlan: Is likely secondary to #1 and #2. Will continue increased coverage given the patient's persistent fever. (5) Elevated troponin Is this a current diagnosis for this admission?: YesPlan: Do appreciate cardiology's input with this most likely this is demand ischemia. To appreciate cardiology's input. (6) Hyperglycemia Is this a current diagnosis for this admission?: YesPlan: Appears to be a stress response as the patient's A1c is an excellent range. (7) Orthostatic hypotension Is this a current diagnosis for this admission?: YesPlan: Improved with hydration (8) Syncope Qualifiers: Syncope type: unspecified Qualified Code(s): R55 - Syncope and collapse Is this a current diagnosis for this admission?: YesPlan: Most likely secondary to the above the patient had no further episodes. (9) Thrombocytopenia Is this a current diagnosis for this admission?: YesPlan: Secondary to cirrhosis relatively stable (10) Anxiety Is this a current diagnosis for this admission?: YesPlan: The patient's son has reported a history of PTSD as well as anxiety. With formal discussion with the patient the patient states that he has not been treated for either of these diagnoses and is not sure if he is ever been formally diagnosed. The patient did seem agitated when asked his son to participate in his care. Awaiting psych for recommendations. The patient denies any intent or suicidal homicidal ideation. (11) Cirrhosis of liver Qualifiers: Hepatic cirrhosis type: unspecified hepatic cirrhosis Ascites presence : without ascites Qualified Code(s): K74.60 - Unspecified cirrhosis of liver Is this a current diagnosis for this admission?: Yes (12) HTN (hypertension) Qualifiers: Hypertension type: essential hypertension Qualified Code(s): I10 - Essential (primary) hypertension Is this a current diagnosis for this admission?: YesPlan: [place] in a good range will continue to monitor - Time Time Spent with patient: 25-34 minutes Medications reviewed and adjusted accordingly: Yes Anticipated discharge: Home Within: within 24 hours
--- NOTE | 2016-09-20 13:16 | PDOC PROGRESS REPORT ---
Subjective Progress Note for:: 09/20/16 Subjective:: Patient seems to be doing better. Patient claims he has noted significant improvement in dyspnea.. Pt is denying any chest arm or neck discomfort. Patient denying any PND, orthopnea. Patient denied any sustained palpitations, dizziness, syncope, near syncope. Patient denying any fever chills. Patient denying any other significant discomfort. Patient is maintaining sinus rhythm. Review of systems: Rest review of systems negative. Medications: Medications have been reviewed. Physical Exam Vital Signs: Temp Pulse Resp BP Pulse Ox 98.6 F 63 16 106/61 98 09/20/16 11:49 09/20/16 11:49 09/20/16 11:49 09/20/16 11:49 09/20/16 11:49 Intake & Output 09/19/16 09/20/16 09/21/16 06:59 06:59 06:59 Intake Total 2726 2580 Output Total 100 Balance 2726 2480 Weight 91.4 kg 90.1 kg Exam: GENERAL: well-nourished and in no acute distress. Alert and oriented x3 HEAD: Atraumatic, normocephalic. EYES: Pupils equal round and reactive to light, extraocular movements intact, sclera anicteric, conjunctiva are normal. ENT: TMs normal, nares patent, oropharynx clear without exudates. Moist mucous membranes. No oral ulcerations or bleeding gums noted NECK: supple without lymphadenopathy. Trachea is central. No cervical or axillary lymphadenopathy noted. Carotids are 2+, JVD WNL LUNGS: Respiration seems nonlabored, no significant accessory muscle action noted. Breath sounds clear to auscultation bilaterally and equal noted. No wheezes rales or rhonchi noted. No significant dullness noted on percussion. CHEST: Palpation of the chest wall shows no significant chest wall tenderness. No other significant abnormalities noted. HEART: [place] [employer], No PSH, 1/6 DIMA aortic area, 1/6 swanson systolic murmur mitral area, no rubs, no gallops. ABDOMEN: Soft, no significant tenderness appreciated, normoactive bowel sounds. No guarding, no rebound. No rigidity noted . No masses appreciated. EXTREMITIES: Pedal pulses are 1-2+, no calf tenderness noted. No clubbing or cyanosis.trace to 1+ pedal edema noted NEUROLOGICAL: Focused neurological exam showed no significant neurologic deficit. Normal speech, no focal weakness appreciated. PSYCH: Normal mood, normal affect. Judgment and insight within normal limits. SKIN: superficial ulceration noted in the right elbow region but no signs of infection or signs of pruritus noted. Patient has numerous superficial ecchymosis. MUSCULOSKELETAL EXAM: No significant joint swelling noted. Results Laboratory Results: 09/19/16 04:49 09/19/16 09:42 09/15/16 09/16/16 09/16/16 23:30 03:39 07:31 Troponin I 0.172 0.186 0.150 Impressions: Chest X-Ray 09/15/16 17:22 IMPRESSION: NO SIGNIFICANT RADIOGRAPHIC FINDING IN THE CHEST. Knee X-Ray 09/17/16 00:00 IMPRESSION: Advanced osteoarthritic changes. No acute findings. Assessment & Plan - Diagnosis (1) Elevated troponin Is this a current diagnosis for this admission?: Yes (2) Syncope Qualifiers: Syncope type: unspecified Qualified Code(s): R55 - Syncope and collapse Is this a current diagnosis for this admission?: Yes (3) HTN (hypertension) Qualifiers: Hypertension type: essential hypertension Qualified Code(s): I10 - Essential (primary) hypertension Is this a current diagnosis for this admission?: Yes (4) Sepsis Qualifiers: Sepsis type: sepsis due to unspecified organism Qualified Code(s): A41.9 - Sepsis, unspecified organism Is this a current diagnosis for this admission?: Yes (5) Coronary artery disease Qualifiers: Coronary Disease-Associated Artery/Lesion type: [place] artery Associated angina: angina presence unspecified Is this a current diagnosis for this admission?: Yes - Notes Notes: Elevated troponin I in the non-STEMI range: Exact etiology not clear but probably related to sepsis. It was evaluated with a nuclear stress test. It did show a small area of fixed defect in the distal anterior wall. No definite ischemia was noted. 2-D echo had shown normal LVEF. EKG gated imaging also showed satisfactory LVEF. It was felt that these findings suggested relatively low risk. At this point recommended medical management to the patient with aspirin, beta mirta, CHARLIE inhibitor, statins. Syncope: So far no cardiac dysrhythmia noted. Patient may benefit from event monitoring as an outpatient. 2-D echo shows no significant structural cardiac abnormalities. Syncope is most likely related to metabolic reasons most likely from dehydration and sepsis. Hypertension: Currently under reasonable control. Sepsis: Seems resolved clinically but continue course of antibiotic as needed. Patient has been afebrile for the last 48 hours. Coronary artery disease: Currently stable. Will optimize medical therapy. Patient will benefit from antiplatelet, but a mirta and CHARLIE inhibitor therapy. This will be instituted. Will repeat a EKG tomorrow as was for any new changes and this will be a predischarge EKG. - Time Time with patient: 15-25 minutes - CODE STATUS was discussed, patient remains full code. Surrogate decision-maker unchanged. Multiple medical problems were addressed.More than 50% of the time spent coordinating care, discussing management plans with involved caregivers. Management plans discussed with involved personnels. Medical decision making was of moderate complexity, patient's has multiple severe comorbidities.
[2016-09-20] MEDS ORDERED: LISINOPRIL 5 MG TABLET PO SCH (15:00)
[2016-09-21] MEDS: VANCOMYCIN HCL 1,250 MG in DEXTROSE 5%-WATER 250 ML IV SCH (01:26)
[2016-09-21 05:04] LABS: HEMATOCRIT 37.3 % (37.9-51.0); HEMOGLOBIN 12.8 g/dL (13.5-17.0); HGB HCT DIFFERENCE 1.1; MEAN CORPUSCULAR HGB CONC 34.4 g/dL (32.0-36.0); MEAN CORPUSCULAR VOLUME 99 fl (80-97); RED BLOOD COUNT 3.77 10^6/uL (4.35-5.55); WHITE BLOOD COUNT 11.7 10^3/uL (4.0-10.5)
[2016-09-21 05:27] LABS: ANION GAP 13 (5-19); BLOOD UREA NITROGEN 14 mg/dL (7-20); CALCIUM 8.9 mg/dL (8.4-10.2); CARBON DIOXIDE 21 mmol/L (22-30); CHLORIDE 107 mmol/L (98-107); CREATININE RESULT 0.71 mg/dL (0.52-1.25); GLUCOSE 106 mg/dL (75-110); MAGNESIUM 2.3 mg/dL (1.6-2.3); SODIUM 140.7 mmol/L (137-145)
[2016-09-21] MEDS: PIPERACILLIN SODIUM/TAZOBACTAM 4.5 GM in NORMAL SALINE 100 ML IV SCH (06:02)
[2016-09-21] MEDS ORDERED: BUSPIRONE HCL 10 MG TABLET PO SCH (10:00)
[2016-09-21] MEDS: ENOXAPARIN SODIUM INJ 40 MG/0.4 ML DISP.SYRIN SUBCUT SCH (10:26)
[2016-09-21] MEDS: ASPIRIN 81 MG TABLET, ENT COATED PO SCH (10:27)
[2016-09-21] MEDS: METOPROLOL SUCCINATE 25 MG TAB.SR.24H PO SCH (10:27)
[2016-09-21] MEDS: FOLIC ACID 1 MG TABLET PO SCH (10:27)
[2016-09-21] MEDS: MULTIVITAMIN TABLET PO SCH (10:27)
[2016-09-21] MEDS: THIAMINE HCL 100 MG TABLET PO SCH (10:27)
[2016-09-21] MEDS: GUAIFENESIN 600 MG TABLET.SA PO SCH (10:27)
[2016-09-21] MEDS: BACITRACIN ZINC OINTMENT 15 GM TP SCH (10:28)
--- NOTE | 2016-09-21 10:44 | EKG REPORT ---
SEVERITY:- NORMAL ECG - SINUS RHYTHM : Confirmed by: Mary Farley 21-Sep-2016 10:43:26
[2016-09-21 12:28] VITALS: BP 101/54
--- NOTE | 2016-09-21 16:04 | PSYCHOLOGICAL NOTE ---
Psych Note - Psych Note Psych Note: Patient is a 66-year-old male whose been admitted to [facility] hospitalist services due to pneumonia and heart related problems. Patient was referred for psychiatric consultation due to self diagnosed anxiety and PTSD. Patient today states he has recently pursue treatment for his anxiety via their [facility] [employer] year in [place]. 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 Patient denies any flashbacks or nightmares or any other symptoms associated with PTSD. Patient states he does occasionally experience "memories," of his experiences but states his anxiety is baseline and has been present prior to his years in service. Patient states numerous family members also struggle with anxiety. Patient does report some depressive symptoms to also include poor sleep which she additionally correlates to racing thoughts due to anxiety. Patient states sometimes he feels "down and out," but denies any prior suicidal ideations and/ or attempts. Patient denies current suicidal ideations. Patient reports his son resides with him which he identifies as a positive. She describes his anxiety to include obsessive and perseverative-type thoughts. Example provided was when his son leaves to go to the store for a quick air and and is gone for more than our he calls incessantly and excessively worries regarding his son's whereabouts and safety. Patient reports he is struggled to sleep due to these types of thoughts, but denies that they prevent him from engaging in self-care or ADLs. Patient reported he would like to pursue counseling to assist him in managing his anxious and racing thoughts. Patient advised he would be provided a list of resources so he may do so should he choose to pursue services outside of the [facility]. Patient provided verbal consent to speak with his son. Son, Sherwin Stephens [phone] states: He is willing to assist the patient in managing his medications to prevent any confusion. He reports no concerns in regards to the patient's safety when discussing suicidal ideations. Son reports the patient does smoke marijuana usually 1-2 times daily and has so for 30+ years. Son reports the patient previously drank alcohol excessively and when he stopped drinking replaced the substance with marijuana. Son describes the patient as struggling with poor sleep and difficulty to get good rest. He states he will often just lay on the couch. Son reports his excessive worrying prevents him from functioning at times. Son provided the same example in regards to him leaving to go to the store for a quick air and as noted above. Patient is alert and oriented 4. Mood was euthymic with normal affect. Patient did endorse anxiety. Patient denies A/VH; delusions not noted. Thought processes were organized. Conversational speech was WNL for prosody. Intellectual abilities were estimated within average range. Attention and focus were fair. Insight and impulse control were fair; judgment was poor. Unspecified anxiety disorder Unspecified depressive disorder Cannabis Use Disorder Patient is psychiatrically cleared for discharge and recommended to follow-up with his outpatient provider. Discussed with patient various coping skills. Additionally discussed with patient's son the adverse effects of marijuana to anxiety and depression. Patient reports no concerns in his home environment and states that his son is helpful and that he relies on him to assist around the home. Patient is followed by the [facility] in [place] and recommended to follow up upon discharge. I consulted with Dr. Salamanca in regards to the care and management of this patient. Hospitalist made aware of disposition and recommendations reports she is in agreement. Thank you kindly for this consultation request.
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
--- NOTE | 2016-09-21 19:16 | PDOC PROGRESS REPORT ---
Subjective Progress Note for:: 09/21/16 Subjective:: Patient was seen this morning on rounds. Patient seems to be doing better. Patient claims he has noted significant improvement in dyspnea.. Pt is denying any chest arm or neck discomfort. Patient denying any PND, orthopnea. Patient denied any sustained palpitations, dizziness, syncope, near syncope. Patient denying any fever chills. Patient denying any other significant discomfort. Patient is maintaining sinus rhythm. Twelve-lead EKG shows sinus rhythm, no acute ST-T wave changes noted. Patient is requesting to be discharged. Review of systems: Rest review of systems negative. Medications: Medications have been reviewed. Physical Exam Vital Signs: Temp Pulse Resp BP Pulse Ox 98.7 F 66 16 101/54 L 97 09/21/16 12:17 09/21/16 12:17 09/21/16 12:17 09/21/16 12:17 09/21/16 12:17 Intake & Output 09/20/16 09/21/16 09/22/16 06:59 06:59 06:59 Intake Total 2580 3319 237 Output Total 100 Balance 2480 3319 237 Weight 90.1 kg 90.5 kg Exam: GENERAL: well-nourished and in no acute distress. Alert and oriented x3 HEAD: Atraumatic, normocephalic. EYES: Pupils equal round and reactive to light, extraocular movements intact, sclera anicteric, conjunctiva are normal. ENT: TMs normal, nares patent, oropharynx clear without exudates. Moist mucous membranes. No oral ulcerations or bleeding gums noted NECK: supple without lymphadenopathy. Trachea is central. No cervical or axillary lymphadenopathy noted. Carotids are 2+, JVD WNL LUNGS: Respiration seems nonlabored, no significant accessory muscle action noted. Breath sounds clear to auscultation bilaterally and equal noted. No wheezes rales or rhonchi noted. No significant dullness noted on percussion. CHEST: Palpation of the chest wall shows no significant chest wall tenderness. No other significant abnormalities noted. HEART: [place] [employer] ANESTHESIOLOGY, No PSH, 1/6 DIMA aortic area, 1/6 swanson systolic murmur mitral area, no rubs, no gallops. ABDOMEN: Soft, no significant tenderness appreciated, normoactive bowel sounds. No guarding, no rebound. No rigidity noted . No masses appreciated. EXTREMITIES: Pedal pulses are 1-2+, no calf tenderness noted. No clubbing or cyanosis.trace to 1+ pedal edema noted NEUROLOGICAL: Focused neurological exam showed no significant neurologic deficit. Normal speech, no focal weakness appreciated. PSYCH: Normal mood, normal affect. Judgment and insight within normal limits. SKIN: No significant ecchymosis, rash, ulcerations or signs of pruritus noted. MUSCULOSKELETAL EXAM: No significant joint swelling noted. Results Laboratory Results: 09/21/16 03:54 09/21/16 03:54 09/21/16 09/21/16 03:54 03:54 WBC 11.7 H RBC 3.77 L Hgb 12.8 L Hct 37.3 L MCV 99 H MCH 34.0 H MCHC 34.4 RDW 14.0 Plt Count 250 Sodium 140.7 Potassium 4.0 Chloride 107 Carbon Dioxide 21 L Anion Gap 13 BUN 14 Creatinine 0.71 Est GFR ( Amer) > 60 Est GFR (Non-Af Amer) > 60 Glucose 106 Calcium 8.9 Magnesium 2.3 09/16/16 17:05 Blood Blood Culture - Final NO GROWTH IN 5 DAYS 09/16/16 16:12 Blood Blood Culture - Final NO GROWTH IN 5 DAYS 09/15/16 09/16/16 09/16/16 23:30 03:39 07:31 Troponin I 0.172 0.186 0.150 Impressions: Chest X-Ray 09/15/16 17:22 IMPRESSION: NO SIGNIFICANT RADIOGRAPHIC FINDING IN THE CHEST. Knee X-Ray 09/17/16 00:00 IMPRESSION: Advanced osteoarthritic changes. No acute findings. Assessment & Plan - Diagnosis (1) Elevated troponin Is this a current diagnosis for this admission?: Yes (2) Syncope Qualifiers: Syncope type: unspecified Qualified Code(s): R55 - Syncope and collapse Is this a current diagnosis for this admission?: Yes (3) HTN (hypertension) Qualifiers: Hypertension type: essential hypertension Qualified Code(s): I10 - Essential (primary) hypertension Is this a current diagnosis for this admission?: Yes (4) Sepsis Qualifiers: Sepsis type: sepsis due to unspecified organism Qualified Code(s): A41.9 - Sepsis, unspecified organism Is this a current diagnosis for this admission?: Yes - Notes Notes: Elevated troponin I in the non-STEMI range: Patient has remained stable. 2-D echo showed well-preserved LVEF. Nuclear stress test shows small area of fixed defect. Patient has done well with medical management therefore continue to treat the patient with aspirin, beta mirta, CHARLIE inhibitor, statins. Patient advised cardiology follow-up. He can follow-up with me in this regard. Syncope: So far no cardiac dysrhythmia noted. Patient may benefit from event monitoring as an outpatient. 2-D echo shows no significant structural cardiac abnormalities. Syncope is most likely related to metabolic reasons most likely from dehydration and sepsis. Patient to report any further syncope or near syncope. Patient could be considered for event monitor at that time. Hypertension: Currently under reasonable control. Sepsis: Seems resolved clinically but continue course of antibiotic as needed. Patient has been afebrile for last several days.. Coronary artery disease: Currently stable. Patient current regimen includes beta mirta and CHARLIE inhibitor therapy. These should be continued. Twelve-lead EKG shows sinus rhythm, no acute ST-T wave changes were noted. Lab work reviewed were noted to be satisfactory. Patient given my card should he like to follow-up with me but he can follow-up with his physician of choice. - Time Time with patient: 15-25 minutes - CODE STATUS was discussed, patient remains full code. Surrogate decision-maker unchanged. Multiple medical problems were addressed.More than 50% of the time spent coordinating care, discussing management plans with involved caregivers. Management plans discussed with involved personnels. Medical decision making was of moderate to high complexity , patient's has multiple severe comorbidities. Medications reviewed and adjusted accordingly: Yes
== END 2016-09-21 15:12 | disposition home or self-care (01) | DRG 871 ==
LOC: ER 16:32 → UNDOADMIN 20:41 → EH 20:41 → 3N 09-16 01:05
PROVIDERS: ADMIT Family Medicine; ATTEND Family Medicine
DX: A41.9 Sepsis, unspecified organism (principal); J18.1 Lobar pneumonia, unspecified organism; I95.1 Orthostatic hypotension; I10 Essential (primary) hypertension; S80.812A Abrasion, left lower leg, initial encounter; K70.30 Alcoholic cirrhosis of liver without ascites; F10.21 Alcohol dependence, in remission; I25.10 Atherosclerotic heart disease of native coronary artery without angina pectoris; R77.8 Other specified abnormalities of plasma proteins; R73.9 Hyperglycemia, unspecified; D69.59 Other secondary thrombocytopenia; F41.9 Anxiety disorder, unspecified; F43.10 Post-traumatic stress disorder, unspecified; F12.980 Cannabis use, unspecified with anxiety disorder; V18.4XXA Pedal cycle driver injured in noncollision transport accident in traffic accident, initial encounter; Y93.55 Activity, bike riding; Y92.9 Unspecified place or not applicable
CPT/HCPCS: 36415; 71020; 78452; 80048; 80053; 80061; 80202; 80307; 81001; 82550; 82553; 82565; 82962; 83036; 83735; 84443; 84484; 85025; 85027; 87040; 87070; 87077; 87186; 87205; 87804; 90715; 93005; 93010; 93017; 93306; 94799; 96365; 99285; A9500; J0280; J0456; J0696; J1650; J1956; J2543; J2785; J3370; J3490; J7030; J7060; Q9969

== ENCOUNTER 2017-12-12 02:44 | Inpatient (IN) | payer OTHER, MEDICARE ==
[2017-12-12] MEDS ORDERED: DEXTROSE 5%-NORMAL SALINE 1,000 ML IV ONE (02:52)
[2017-12-12] MEDS ORDERED: DEXTROSE 50%-WATER 25 GM/50 ML DISP.SYRIN IV ONE ×2 (02:53→02:55)
--- NOTE | 2017-12-12 02:57 | ER Document Report ---
ED General - General Stated Complaint: UNRESPONSIVE Time Seen by Provider: 12/12/17 02:51 Notes: Patient is a 67-year-old male who presents with complaint of altered mental status. He was found unresponsive at his house. His blood sugar was found to be 17. He was given dextrose. He is awoken but is still confused and not making sense. He has a history of chronic alcoholism. History of being very jaundiced. He is refused all medical treatment and therapy in regards to his liver failure. He cannot give me further history being that he is altered. TRAVEL OUTSIDE OF THE [place] IN LAST 30 DAYS: No - Related Data Allergies/Adverse Reactions: No Known Allergies Allergy (Verified 09/15/16 18:54) Past Medical History - Social History Smoking Status: Unknown if Ever Smoked Frequency of alcohol use: Heavy Drug Abuse: Other - unknown Family History: Reviewed & Not Pertinent, CAD - Past Medical History Cardiac Medical History: Reports: Hx Hypertension Denies: Hx Congestive Heart Failure, Hx DVT, Hx Heart Attack, Hx Hypercholesterolemia, Hx Pulmonary Embolism Pulmonary Medical History: Denies: Hx Asthma, Hx COPD Neurological Medical History: Denies: Hx Seizures Endocrine Medical History: Denies: Hx Diabetes Mellitus Type 1, Hx Diabetes Mellitus Type 2, Hx Hyperthyroidism, Hx Hypothyroidism Renal/ Medical History: Denies: Hx Peritoneal Dialysis GI Medical History: Reports: Hx Cirrhosis - "History of". Denies: Hx Gastroesophageal Reflux Disease, Hx Hepatitis Musculoskeletal Medical History: Reports Hx Arthritis Psychiatric Medical History: Denies: Hx Depression Infectious Medical History: Denies: Hx Hepatitis Review of Systems - Review of Systems -: Yes ROS unobtainable due to patient's medical condition - altered mental status Physical Exam - Vital signs Vitals: Pulse Ox 93 12/12/17 04:42 - Notes Notes: General Appearance: Patient is yellow. He is going back and forth in bed and mumbling incoherent words. Vitals: reviewed, See vital signs table. Head: no swelling or tenderness to the head Eyes: PERRL, EOMI, conjunctiva is yellow. Mouth: No decreasd moisture Throat: No tonsillar inflammation, No airway obstruction, No lymphadenopathy Neck: Supple, no neck tenderness, No thyromegaly Lungs: No wheezing, No rales, No rhonci, No accessory muscle use, good air exchange bilaterally. Heart: Normal rate, Regular rythm, No murmur, no rub Abdomen: Normal BS, soft, No rigidity, No abdominal tenderness, No guarding, no rebound, no abdominal masses, no organomegaly Extremities: strength 5/5 in all extremities, good pulses in all extremities, no swelling or tenderness in the extremities, no edema. Skin: warm, dry, appropriate color, very jaundiced Neuro: Patient is moving all extremities on his own. He is restless and rolling back and forth in bed. He mumbles some words incoherently. He does not respond appropriately to questions. Course - Re-evaluation Re-evalutation: 12/12/17 03:46 Patient's blood pressure started to fall. Son is at bedside. Son says that the patient has never discussed CODE STATUS with him. He is #a paperwork saying he is full code or DNR. He says that he is gradually worsened. Son is aware that his father may not make it through this episode and the son says he has expected this for some time now. Due to his liver cirrhosis and hypertension I will give a dose of albumin as well as more fluids to try to stabilize his blood pressure. Sugar is improved and is down to 130s. Trying to avoid a central line at this time, unless absolutely have to, being that the patient most likely has a high INR and I suspect he probably has thrombocytopenia as well. 12/12/17 03:47 12/12/17 04:57 Patient's mental status continued to worsen. He started become more hypoxic. He was get difficult to treat him and still has not had a CT scan of his brain yet as he is advised about and now is even more more confused. He will not even respond to verbally at all. Therefore intubate the patient. Patient's blood pressure also is to continue to decline and therefore have placed a central line and placed him on pressors. 12/12/17 06:22 12/12/17 06:[address] scan of his head is negative. Patient unfortunately is not fulminant hepatic and renal failure. He is hypotensive despite pressors. Patient will not recover from this without a transplant which he is not a candidate for being that he has never given up drinking alcohol and he is not stable enough for him to receive such a treatment. Talked her son at length and informed the son that I fully expect that he will most likely not recover from this and pass away within the next 1-2 days. Son is understanding of this and says that he expects this as well. Son is agreed to make him a DNR. Son said to continue medical therapy but to keep him comfortable at the same time. Spoke with the hospitalist, Dr. Herman, who agrees to admit the patient. Dictation of this chart was performed using voice recognition software; therefore, there may be some unintended grammatical errors. - Vital Signs Vital signs: Temp Pulse Resp BP Pulse Ox 93 12/12/17 04:42 - Laboratory Result Diagrams: 12/12/17 03:46 12/12/17 03:46 Laboratory results interpreted by me: 12/12/17 12/12/17 12/12/17 02:50 03:41 03:46 WBC 10.7 H RBC 3.45 L Hgb 12.9 L Hct 37.0 L MCV 107 H MCH 37.3 H RDW 15.4 H Plt Count 32 L Seg Neuts % (Manual) 81 H Band Neutrophils % 2 L Lymphocytes % (Manual) 8 L Metamyelocytes % 1 H Myelocytes % 1 H Abs Neuts (Manual) 9.1 H Sodium Carbon Dioxide BUN Creatinine Est GFR ( Amer) Est GFR (Non-Af Amer) Glucose POC Glucose 64 L 137 H Calcium Total Bilirubin Direct Bilirubin AST Alkaline Phosphatase Ammonia Total Protein Albumin Lipase 12/12/17 12/12/17 03:46 03:46 WBC RBC Hgb Hct MCV MCH RDW Plt Count Seg Neuts % (Manual) Band Neutrophils % Lymphocytes % (Manual) Metamyelocytes % Myelocytes % Abs Neuts (Manual) Sodium 129.6 L Carbon Dioxide 14 L BUN 71 H Creatinine 7.30 H Est GFR ( Amer) 9 L Est GFR (Non-Af Amer) 7 L Glucose 112 H POC Glucose Calcium 6.2 L* Total Bilirubin 17.0 H Direct Bilirubin 15.6 H AST 270 H Alkaline Phosphatase 198 H Ammonia 114.7 H Total Protein 6.0 L Albumin 1.6 L Lipase 408.1 H - EKG Interpretation by Me Additional EKG results interpreted by me: 12/12/17 06:21 EKG is reviewed and interpreted by me. EKG shows sinus rhythm with a rate of [address] segment elevation or depression. No ischemic T-wave inversions. HI interval, QRS duration are within normal range. QTc interval is prolonged. Old EKG for comparison is from September 21, 2016. Procedures - Central Line Right Femoral Consent obtained: No - emergent Central line pre-insertion: Chloraprep applied Central line lumen type: Triple Ultrasound guided: Yes CM at insertion site: 20 Line secured with sutures: Yes Central line post-insertion: Blood return from lumens, Biopatch applied, Sutured , Sterile dressing applied Number of attempts: 1 Complications: No - Intubation Orotracheal Airway evaluation: Normal anatomy Mallampati Classification: Class 2 Intubation method: Orotracheal Blade type: Isabelle Blade size: 4 ETT size: 7.5 ETT secured at: Teeth ETT secured at (cm): 23 Breath Sounds after Intubation: Equal End tidal CO2 confirmed: Yes Post Intubation Xray: Yes - appropriate positioining Intubation Complications: No complications Critical Care Note - Critical Care Note Total time excluding time spent on procedures (mins): 45 Comments: Critical care time not including time spent on procedures approximately 45 minutes due to frequent discussions with family, management of hypotension, management of respiratory failure, management of severe hepatic and renal failure. Discharge - Discharge Clinical Impression: Hepatic failure due to alcoholism, Hyperkalemia, Hypoglycemia, Hypocalcemia, Hepatorenal failure Renal failure Qualifiers: Renal failure chronicity: acute Acute renal failure type: unspecified Qualified Code(s): N17.9 - Acute kidney failure, unspecified Condition: Critical Disposition: ADMITTED INPATIENT Admitting Provider: Hospitalist Unit Admitted: ICU
[2017-12-12] MEDS ORDERED: ALBUMIN HUMAN 12.5 GM/50 ML RTUINJ IV SCH (03:45)
[2017-12-12] MEDS ORDERED: NORMAL SALINE 1000 ML 1,000 ML IV ONE (03:46)
[2017-12-12 04:06] LABS: HEMOGLOBIN 12.9 g/dL (13.5-17.0); MEAN CORPUSCULAR HEMOGLOBIN 37.3 pg (27.0-33.4); MEAN CORPUSCULAR HGB CONC 34.8 g/dL (32.0-36.0); MEAN CORPUSCULAR VOLUME 107 fl (80-97); RED BLOOD COUNT 3.45 10^6/uL (4.35-5.55); RED CELL DISTRIBUTION WIDTH 15.4 % (11.5-14.0); WHITE BLOOD COUNT 10.7 10^3/uL (4.0-10.5)
[2017-12-12] MEDS ORDERED: ROCURONIUM BROMIDE INJ 50 MG/5 ML VIAL IV ONE ×2 (04:19→10:43)
[2017-12-12] MEDS ORDERED: ETOMIDATE INJ/PF 20 MG/10 ML SDV IV ONE (04:19)
[2017-12-12] MEDS ORDERED: MIDAZOLAM HCL 50 MG/100 ML RTUINJ IV PRN (04:19)
[2017-12-12] MEDS ORDERED: DEXTROSE 5%-WATER 250 ML with NOREPINEPHRINE BITARTRATE 4 MG IV PRN ×2 (04:20)
[2017-12-12 04:23] LABS: ALANINE AMINOTRANSFERASE 71 U/L (21-72); ALBUMIN 1.6 g/dL (3.5-5.0); ALKALINE PHOSPHATASE 198 U/L (38-126); ANION GAP 18 (5-19); ASPARTATE AMINO TRANSFERASE 270 U/L (17-59); BILIRUBIN,DIRECT 15.6 mg/dL (0.0-0.4); BLOOD UREA NITROGEN 71 mg/dL (7-20); CARBON DIOXIDE 14 mmol/L (22-30); CHLORIDE 98 mmol/L (98-107); GLUCOSE 112 mg/dL (75-110); LIPASE 408.1 U/L (23-300); SODIUM 129.6 mmol/L (137-145)
[2017-12-12] MEDS ORDERED: NOREPINEPHRINE BITARTRATE INJ/PF 4 MG/4 ML SDV IV ONE (04:23)
[2017-12-12 04:34] LABS: ALCOHOL < 10 mg/dL (NONE DETECTED)
[2017-12-12 04:37] LABS: CALCIUM 6.2 mg/dL (8.4-10.2)
[2017-12-12 04:38] LABS: PLATELET COUNT 32 10^3/uL (150-450)
[2017-12-12 04:42] LABS: ABSOLUTE LYMPHOCYTES# (MANUAL) 0.9 10^3/uL (0.5-4.7); ABSOLUTE MONOCYTES # (MANUAL) 0.6 10^3/uL (0.1-1.4); ABSOLUTE NEUTROPHILS# (MANUAL) 9.1 10^3/uL (1.7-8.2); BAND NEUTROPHILS % (MANUAL) 2 % (3-5); BASOPHILS % (MANUAL) 0 % (0-2); EOSINOPHILS % (MANUAL) 1 % (0-6); LYMPHOCYTES % (MANUAL) 8 % (13-45); METAMYELOCYTES % (MANUAL) 1 % (0); MONOCYTES % (MANUAL) 6 % (3-13); MYELOCYTES % (MANUAL) 1 % (0); SEGMENTED NEUTROPHILS % (MAN) 81 % (42-78); TOTAL CELLS COUNTED 100
[2017-12-12 04:44] LABS: PLATELET COMMENT DECREASED; RBC MORPHOLOGY COMMENT NORMO-CYTIC/CHROMIC
--- NOTE | 2017-12-12 05:08 | RADIOLOGY REPORT (SQ) ---
EXAM DESCRIPTION: XR CHEST 1 VIEW COMPLETED DATE/TME: 12/12/2017 00:00 CLINICAL HISTORY: S/P ETT PLACEMENT COMPARISON: 09/15/2016 FINDINGS: Single frontal view of the chest. Endotracheal tube with tip 4 cm above the donna. NG tube with tip below the diaphragm. Low lung volumes. Cardiomediastinal silhouette has normal size and contour. Linear vascular congestion with possible interstitial edema. No pneumothorax. Leads overlie the chest. Osseous structures are stable. Upper abdominal soft tissues are unremarkable. IMPRESSION: 1. Endotracheal tube and NG tube in appropriate position. 2. Pulmonary vascular congestion with possible interstitial edema.
[2017-12-12] MEDS ORDERED: SODIUM BICARBONATE 8.4% INJ 50 MEQ/50 ML DISP.SYRIN IV ONE (05:13)
[2017-12-12] MEDS ORDERED: CALCIUM GLUCONATE 1000 MG/10 ML INJ IV ONE (05:13)
[2017-12-12] MEDS ORDERED: IPRATROPIUM/ALBUTEROL 0.5-2.5 MG/3 ML AMPUL NEB PRN (05:39)
[2017-12-12] MEDS ORDERED: MAGNESIUM HYDROXIDE SUSP 30 ML UDCUP NG PRN (05:39)
[2017-12-12] MEDS ORDERED: PROPOFOL 1,000 MG/100 ML INFUS..BTL IV PRN (05:43)
[2017-12-12] MEDS ORDERED: FENTANYL CITRATE INJ/PF 100 MCG/2 ML AMPUL IV PRN (05:43)
[2017-12-12] MEDS ORDERED: DEXTROSE 50%-WATER 25 GM/50 ML DISP.SYRIN IV PRN ×2 (05:45)
[2017-12-12] MEDS ORDERED: DEXTROSE 40% GEL 15 GM TUBE PO PRN ×2 (05:45)
[2017-12-12] MEDS ORDERED: GLUCAGON,HUMAN RECOMB 1 MG INJ IM PRN (05:45)
[2017-12-12] MEDS ORDERED: NORMAL SALINE 1000 ML 1,000 ML IV SCH (05:45)
[2017-12-12] MEDS ORDERED: THIAMINE HCL 100 MG, FOLIC ACID 1 MG in NORMAL SALINE 250 ML IV SCH (05:45)
[2017-12-12] MEDS ORDERED: HEPARIN SOD (PORCINE) 5,000 UNIT/ML 1 ML SYRINGE SUBCUT SCH (06:00)
--- NOTE | 2017-12-12 06:00 | RADIOLOGY REPORT (SQ) ---
EXAM DESCRIPTION: CT HEAD WITHOUT IV CONTRAST COMPLETED DATE/TME: 12/12/2017 02:51 CLINICAL HISTORY: altered mental status COMPARISON: None available TECHNIQUE: Axial CT of the head obtained from the skull apex to the skull base without contrast. FINDINGS: No acute intracranial hemorrhage identified. No mass, mass effect, shift of the midline, abnormal extra-axial fluid collection or CT evidence of acute ischemic change identified. The ventricular system and sulcal spaces are mildly enlarged compatible with mild cerebral atrophy. Scattered areas of hypodensity throughout the supratentorial white matter are nonspecific and may be related to chronic small vessel ischemic change. The visualized paranasal sinuses and the mastoids are clear. No skull fracture identified. Visualized orbits and globes are unremarkable. Atherosclerotic calcification of the intracranial internal carotid arteries. NG tube partially visualized. IMPRESSION: 1. No acute intracranial abnormality by CT criteria. This exam was performed according to our departmental dose-optimization program, which includes automated exposure control, adjustment of the mA and/or kV according to patient size and/or use of iterative reconstruction technique.
[2017-12-12] MEDS ORDERED: LACTULOSE SYRUP 20 GM/30 ML UDCUP NG ONE (06:15)
[2017-12-12] MEDS ORDERED: CEFTRIAXONE 1 GM/D5W RTU 1 GM/50 ML RTUPB IV SCH (08:00)
[2017-12-12] MEDS ORDERED: NORMAL SALINE 1000 ML 2,000 ML IV ONE (08:00)
[2017-12-12 08:22] LABS: PARTIAL THROMBOPLASTIN TIME 104.2 SEC (23.5-35.8)
--- NOTE | 2017-12-12 08:22 | EKG REPORT ---
SEVERITY:- ABNORMAL ECG - SINUS RHYTHM PROBABLE INFERIOR INFARCT, AGE INDETERMINATE CONSIDER ANTERIOR INFARCT PROLONGED QT INTERVAL : Confirmed by: Britni Colunga MD 12-Dec-2017 08:22:39
[2017-12-12 08:26] LABS: PROTHROMBIN TIME 62.5 SEC (11.4-15.4)
[2017-12-12 08:27] LABS: INTERNATIONAL RATION (INR) 6.88
[2017-12-12 12:12] VITALS: BP 39/24
[2017-12-12] MEDS ORDERED: LACTULOSE SYRUP 20 GM/30 ML UDCUP NG SCH (14:00)
--- NOTE | 2017-12-12 17:55 | PDOC H&P ---
History of Present Illness Admission Date/PCP: 12/12/17 05:39 Patient complains of: Altered mental status History of Present Illness: JAYA KOCH is a 67 year old male with a past medical history of lifelong alcoholism, hepatic cirrhosis with hepatorenal failure. Presents after found unresponsive at home, EMS discovered blood sugar of 17, receiving dextrose and brought to the emergency room where he is found profoundly jaundiced and refuses all treatment. Shortly thereafter his blood pressure drops, becomes unresponsive, blood sugar is found to be in 130s. Following intubation, central line for pressors his CODE STATUS is determined as DNR. Son is at bedside who verifies CODE STATUS is in fact DNR. Patient is transferred to the hospitalist with multisystem organ failure with likely sepsis secondary to pneumonia versus SBP. Past Medical History Cardiac Medical History: Reports: Hypertension Denies: Congestive Heart Failure, DVT, Myocardial Infarction, Hyperlipidema, Pulmonary Embolism Pulmonary Medical History: Denies: Asthma, Chronic Obstructive Pulmonary Disease (COPD) Neurological Medical History: Denies: Seizures Endocrine Medical History: Denies: Diabetes Mellitus Type 1, Diabetes Mellitus Type 2, Hyperthyroidism, Hypothyroidism GI Medical History: Reports: Cirrhosis - "History of" Denies: Gastroesophageal Reflux Disease, Hepatitis Musculoskeltal Medical History: Reports: Arthritis Psychiatric Medical History: Reports: Alcohol Dependency Denies: Depression Hematology: Reports: Anemia Social History Information Source: Relative, [facility] Records Lives with: Alone Smoking Status: Unknown if Ever Smoked Frequency of Alcohol Use: None Drugs: Marijuana Hx Prescription Drug Abuse: No - Advance Directive Resuscitation Status: Do Not Resuscitate Family History Family History: CAD Parental Family History Reviewed: Yes - Unobtainable Children Family History Reviewed: Yes - Unobtainable Sibling(s) Family History Reviewed.: Yes - Unobtainable Medication/Allergy Home Medications: Aspirin [Ecotrin 81 mg EC Tablet] 81 mg PO DAILY #30 tabec 09/21/16 Buspirone HCl [Buspar 10 mg Tablet] 5 mg PO Q12 #30 tablet 09/21/16 Cefuroxime Axetil [Ceftin 500 mg Tablet] 1 tab PO BID #20 tablet 09/21/16 Doxycycline Hyclate 100 mg PO BID #20 capsule 09/21/16 Lisinopril [Prinivil 5 mg Tablet] 2.5 mg PO DAILY #30 tablet 09/21/16 Metoprolol Succinate [Toprol Xl 25 mg Tab.sr] 25 mg PO DAILY #30 tab.sr.24h Allergies/Adverse Reactions: No Known Allergies Allergy (Verified 09/15/16 18:54) Review of Systems ROS unobtainable: Due to mental status Physical Exam Vital Signs: Temp Pulse Resp BP Pulse Ox 93.6 F L 77 12 39/24 L 79 L 12/12/17 08:41 12/12/17 10:00 12/12/17 11:59 12/12/17 11:59 12/12/17 12:00 Intake & Output 12/11/17 12/12/17 12/13/17 11:59 11:59 11:59 Output Total 0 Balance 0 Weight 102 kg General appearance: PRESENT: disheveled, severe distress, other - Neon jaundiced , chronically ill-appearing Head exam: PRESENT: atraumatic, normocephalic Eye exam: PRESENT: PERRLA, scleral icterus Ear exam: PRESENT: normal external ear exam Mouth exam: PRESENT: moist, tongue midline Neck exam: ABSENT: carotid bruit, JVD, lymphadenopathy, thyromegaly Respiratory exam: PRESENT: crackles, decreased breath sounds, tachypnea, other - Intubated comfortable on vent settings Cardiovascular exam: PRESENT: gallop, tachycardia. ABSENT: diastolic murmur, rubs, systolic murmur Pulses: PRESENT: normal dorsalis pedis pul Vascular exam: PRESENT: normal capillary refill GI/Abdominal exam: PRESENT: ascites, distended, hypoactive bowel sounds, soft. ABSENT: firm Rectal exam: PRESENT: deferred Gentrourinary exam: ABSENT: lesions, scrotal swelling, testicular tenderness Extremities exam: PRESENT: +1 edema Neurological exam: PRESENT: alert - Intubated and sedated Skin exam: PRESENT: dry, intact, jaundice, warm. ABSENT: cyanosis, rash Results Impressions: Chest X-Ray 12/12/17 00:00 IMPRESSION: 1. Endotracheal tube and NG tube in appropriate position. 2. Pulmonary vascular congestion with possible interstitial edema. Head CT 12/12/17 02:51 IMPRESSION: 1. No acute intracranial abnormality by CT criteria. This exam was performed according to our departmental dose-optimization program, which includes automated exposure control, adjustment of the mA and/or kV according to patient size and/or use of iterative reconstruction technique. Assessment & Plan - Diagnosis (1) Spontaneous bacterial peritonitis Is this a current diagnosis for this admission?: Yes Plan: Long-standing alcoholism with hepatorenal failure, empiric antibiotics initiated , follow-up CBC and blood culture (2) Severe sepsis Is this a current diagnosis for this admission?: Yes Plan: Secondary to #1, IV fluid challenge, pressors as needed, supportive care (3) Multisystem organ failure Is this a current diagnosis for this admission?: Yes Plan: Grave prognosis, aggressive management of #1, follow-up CBC and Chem-12 (4) Hypotension Is this a current diagnosis for this admission?: Yes Plan: IV fluid challenge, pressors as needed. - Time Time Spent: 50 to 70 Minutes - Inpatient Certification Medical Necessity: Need Close Monitoring Due to Risk of Patient Decompensation
--- NOTE | 2017-12-12 18:00 | Death Summary ---
Summary Date : 12/12/17 Time of :: 12:07 Autopsy: No Resuscitation Status: Do Not Resuscitate - Final Diagnosis (1) Spontaneous bacterial peritonitis Is this a current diagnosis for this admission?: Yes (2) Severe sepsis Is this a current diagnosis for this admission?: Yes (3) Multisystem organ failure Is this a current diagnosis for this admission?: Yes (4) Hypotension Is this a current diagnosis for this admission?: Yes (5) Pneumonia Is this a current diagnosis for this admission?: Yes Hospital Course:: Patient admitted with severe sepsis secondary to spontaneous bacterial peritonitis, pneumonia with acute respiratory failure, multisystem organ failure , encephalopathy and hypotension requiring intubation with critical care. Despite this management hypotension persisted resulting in . At 12:07 PM
== END 2017-12-12 12:07 | disposition left against medical advice (07) | DRG 871 ==
LOC: ER 02:44 → EH 05:39 → ICU 06:56
PROVIDERS: ADMIT Internal Medicine; ATTEND Internal Medicine
PROC: 5A1935Z Respiratory Ventilation, Less than 24 Consecutive Hours (ICD-10-PCS; principal; 2017-12-12)
PROC: 0BH17EZ Insertion of Endotracheal Airway into Trachea, Via Natural or Artificial Opening (ICD-10-PCS; 2017-12-12)
PROC: 3E0F73Z Introduction of Anti-inflammatory into Respiratory Tract, Via Natural or Artificial Opening (ICD-10-PCS; 2017-12-12)
PROC: 06HM33Z Insertion of Infusion Device into Right Femoral Vein, Percutaneous Approach (ICD-10-PCS; 2017-12-12)
DX: A41.9 Sepsis, unspecified organism (principal); K65.2 Spontaneous bacterial peritonitis; K76.7 Hepatorenal syndrome; J18.9 Pneumonia, unspecified organism; F10.239 Alcohol dependence with withdrawal, unspecified; R65.20 Severe sepsis without septic shock; Y90.0 Blood alcohol level of less than 20 mg/100 ml; I95.9 Hypotension, unspecified; K70.30 Alcoholic cirrhosis of liver without ascites; I10 Essential (primary) hypertension; M19.90 Unspecified osteoarthritis, unspecified site; D64.9 Anemia, unspecified; Z78.1 Physical restraint status; Z66 Do not resuscitate; Z60.2 Problems related to living alone; E87.5 Hyperkalemia; E16.2 Hypoglycemia, unspecified; E83.51 Hypocalcemia; Z79.82 Long term (current) use of aspirin; Z79.899 Other long term (current) drug therapy; Z82.49 Family history of ischemic heart disease and other diseases of the circulatory system
CPT/HCPCS: 36415; 70450; 71045; 80053; 80307; 82140; 82962; 83690; 84484; 85025; 85610; 85730; 87040; 93005; 93010; 94002; 96360; 96361; 99291; C1751; J2250; J3490; J7030; J7060; P9047